=== PATIENT | female | born 1990 | race African-American/Black ===

== ENCOUNTER 2024-04-24 12:15 | Inpatient (IN) | payer OTHER, SELFPAY ==
[2024-04-24] VITALS (9 sets, daily range): BP systolic 96–112; BP diastolic 61–73; BMI 27.0; BMI 26.4
--- NOTE | 2024-04-24 06:35 | ED.GENMED ---
History of Present Illness
General
Chief Complaint: Generalized Pain
Source: patient
Exam Limitations: none
Time Seen by Provider: 04/24/24 06:15
History of Present Illness
History of Present Illness:
33-year-old female presents with what she feels is a lupus flare. She stated started getting worse earlier in the week. Lupus flare symptoms are general myalgias aches fatigue joint pains. No fever. No photophobia. No hallucinations. Some
vague headache. She had increased her prednisone to 30 mg early in the week and is back down to 10 mg currently. She has not been seen by her director of search engine optimization although apparently they have recommended she get a lumbar puncture to evaluate for her
lupus. She was suggested to come to the ER yesterday. However presents this morning.
Past History
Past History
ED Past Medical History: Other (SLE)
ED Past Surgical History:
Review of Systems
Review of Systems
All Other Systems: Not applicable
Respiratory: Reports no symptoms
Cardiac: Reports no symptoms
ABD/GI: Reports no symptoms
: Reports no symptoms
Phy Exam
Physical Exam
Physical Exam:
GENERAL: Alert and oriented in no apparent distress
EYE: Orbits normal. This sharp
NECK: Supple, negative Kernig's and Brudzinski sign
CARDIAC: Regular rate and rhythm without any obvious murmurs.
LUNGS: Clear breath sounds,normal
ABDOMEN: Soft, without focal tenderness or distention
NEUROLOGICAL: Alert and oriented , grossly non-focal. Speech normal. Gait witnessed and normal.
SKIN: Warm and dry, no rash or lesion, no discoloration, skin intact.
MUSCULOSKELETAL: No edema,no deformity.Good color. No clear-cut joint swelling at this time. No warmth or erythema to the joints.
PSYCH: Normal and appropriate interaction.
Course
Orders/Labs/Results
Orders:
Orders
04/24/24 06:29
Test Result ONCE
04/24/24 06:30
0.9% Sodium Chloride 500 ml [Nss] 500 ml IV BOLUS
04/24/24 07:40
CRP [C-Reactive Protein] Urgent
Complete Blood Count/With Diff Urgent
Comprehensive Metabolic Panel Urgent
ESR [Erythrocyte Sed Rate] Urgent
HCG, Serum Qualitative Screen Urgent
Lipase Urgent
Comment: ADD ON
Urinalysis Reflex To Culture Urgent
Date Specimen was Collected: 04/24/24
Time Specimen was Collected: 07:33
Urine Microscopic Reflex Cult Urgent
Urine Culture Urgent
KAVITHA Source: U
Specimen Description:
Date Specimen was Collected: 04/24/24
Time Specimen was Collected: 07:33
04/24/24 08:00
Hydroxychloroquine [Plaquenil] 200 mg PO Q48H
04/24/24 08:09
Add On- LAB Urgent
Tests Added?: lipase
US Abdomen Complete/Upper Urgent
Comment:
Reason For Exam: elevated lfts. lupus
04/24/24 Lunch
Regular
At Your Request: Full Participation
04/24/24 11:35
Dexamethasone Sod Phosphate [Decadron] 10 mg IV NOW STA
04/24/24 11:55
GASTROINTESTINAL CONSULT Routine
Consulting Provider: Soham Mart
Was physician already notified: Yes
04/24/24 11:56
Admit/Transfer Patient As Directed
Co-Sign Provider:
Level of Care: Inpatient admission
Assign to:: Medical/Surgical
Physician / Group: dee dee guzman
Diagnosis: Lupus flare, transaminitis
Reason for Hospitalization: Lupus flare, transaminitis
Expected length of stay greater than two midnights?: Yes
ELOS- Estimated Length of Stay in days: 2
I certify the patient meets the requirements for IP care: Yes
PRN Pain Medication Management As Directed
May give lesser potent ordered pain med per pt: Yes
preference::
Protocol:: Medication orders for pain may be administered in a
manner that supports deferring to patient preference
when the pt is:
- Requesting an ordered lesser potent pain medication.
Least to most potent pain medications are defined
as: acetaminophen < NSAID < tramadol < opioids
(morphine, oxycodone, hydromorphone).
- Requesting a lesser dose of the same medication IF
ORDERED.
- Requesting a less intrusive route of administration
if both routes are prescribed by the provider (PO <
IV).
04/24/24 11:57
Code Status As Directed
Resuscitation Status: Full Code
04/24/24 13:27
Ondansetron Injectable [Zofran] 4 mg IV Q6HPRN PRN
Oxycodone [Roxicodone] 5 mg PO Q4HPRN PRN
04/24/24 13:27
Activity As Directed
Activity Level: Ambulate
Pneumatic Compression Sleeves As Directed
Type: Knee high
Vital Signs As Directed
Frequency: Per unit guidelines
DX Deep Vein Thrombosis Video Routine
04/24/24 14:10
Ketorolac [Toradol] 30 mg IV Q6HPRN PRN
04/24/24 20:00
Dexamethasone Sod Phosphate [Decadron] 4 mg IV Q12H
04/25/24 06:25
Comprehensive Metabolic Panel IN AM
Folate IN AM
TSH IN AM
Vitamin B12 IN AM
Abnormal Lab Results
04/24/24
07:40
WBC 4.5 L 10^3/uL
(4.8-10.8)
RBC 3.42 L 10^6/uL
(4.20-5.40)
Hgb 10.6 L g/dL
(12.0-16.0)
Hct 32.9 L %
(37.0-47.0)
MCHC 32.2 L g/dL
(33.0-37.0)
RDW 16.3 H %
(11.5-14.5)
Abs Immat Gran (auto) 0.1 H 10^3/uL
(0-0.05)
Absolute Lymphs (auto) 0.7 L 10^3/uL
(1.2-3.4)
Immature Gran % 1.8 H %
(0-0.5)
Lymphocytes % 14.6 L %
(20.5-51.1)
ESR 48 H mm/hour
(0-20)
Creatinine 0.5 L mg/dL
(0.6-1.0)
Total Bilirubin 2.2 H mg/dl
(0.2-1.3)
AST 310 H U/L
(14-36)
ALT 419 H U/L
(0-35)
C-Reactive Protein 16.60 H mg/L
(0.0-10.00)
Total Protein 8.4 H g/dl
(6.3-8.2)
Leukocyte Esterase Rfl 2+ A
(Negative)
Urine RBC 3-6 A /HPF
(0-2)
Urine WBC (Reflex) 11-15 A /HPF
(0-5)
Urine Bacteria (Reflex) Few A
(Negative)
04/24/24 07:40
04/24/24 07:40
Vital Signs
Initial and Last Documented VS:
Initial Vital Signs
Temp Pulse Resp BP Pulse Ox
98.0 F 92 19 108/73 98
04/24/24 06:05 04/24/24 06:05 04/24/24 06:05 04/24/24 06:05 04/24/24 06:05
Last Documented Vital Signs
Temp Pulse Resp BP Pulse Ox
98.2 F 80 20 104/68 99
04/25/24 08:00 04/25/24 08:00 04/25/24 08:00 04/25/24 08:00 04/25/24 08:00
MDM/Problems Addressed
Differential Diagnosis Includes:
Patient sent for a lumbar puncture. Clinically she is not meningitic. I will try to contact and discussed with her director of search engine optimization. In the meantime check labs sed rate CRP.
*Radiology
Radiology exam reviewed: radiology read reviewed (Negative)
*Critical Care Note
Total Time (30-74mins, 75-104mins- exclusive of procedures): Not Applicable
Update Note
Update Note:
Discussed with patient's director of search engine optimization. She feels very unlikely to be her medications. However with progressive symptoms increasing inflammatory markers new transaminitis patient will be admitted. Clinically not meningitic
ED Attending Note
-
Portions of this chart may have been created with voice recognition software.� Occasional wrong word or��sound alike� substitutions may have occurred due to the inherent limitations of voice recognition software.
Discharge Plan
Departure
Patient Disposition: Admit
Date of Disposition: 04/24/24
Time of Disposition: 09:26
Presentation/result/management discussed w/ accepting MD/DO: Hospitalist
Discharge Problem:
SLE flare, Transaminitis
Interventions
Interventions:
*Risk Screen - Suicide Last Done: 04/24/24 06:05
*General Assessment Last Done: 04/24/24 06:05
*Neglect/Abuse Screening Last Done: 04/24/24 06:05
ED- Fall Risk Assessment Last Done: 04/24/24 06:40
*ED COVID-19 Vaccine History Last Done: 04/24/24 06:05
*Nursing Disposition Last Done: 04/24/24 13:27
Discharge Date and Time
Discharge Date/Time: 04/24/24 13:28
--- NOTE | 2024-04-24 06:42 | EDRN ---
Patient states she wants to hold off on blood work until they can get ahold of her doctor.
[2024-04-24] MEDS: NSS 500 IV (07:41)
[2024-04-24 07:57] LABS: % Basophils 0.4 % (0-2); % Immature Granulocytes 1.8 % (0-0.5); % Lymphocytes 14.6 % (20.5-51.1); % Monocytes 8.2 % (1.7-9.3); Absolute Immature Granulocytes 0.1 10^3/uL (0-0.05); Absolute Lymphocytes 0.7 10^3/uL (1.2-3.4); Absolute Monocytes 0.4 10^3/uL (0.1-0.6); Absolute Neutrophils 3.4 10^3/uL (1.4-6.5); Hematocrit 32.9 % (37.0-47.0); Hemoglobin 10.6 g/dL (12.0-16.0); Mean Corp Hgb Conc. 32.2 g/dL (33.0-37.0); Mean Corpuscular Volume 96.2 fL (81.0-99.0); Mean Platelet Volume 9.3 fL (7.4-10.4); Nucleated Red Blood Cells % 0 %; Platelet Count 362 10^3/uL (130-400); Red Blood Cell Count 3.42 10^6/uL (4.20-5.40); Red Cell Dist. Width 16.3 % (11.5-14.5); White Blood Cell Count 4.5 10^3/uL (4.8-10.8)
[2024-04-24 07:58] LABS: Urine Albumin Negative (Neg - Trace); Urine Bilirubin Negative (Negative); Urine Character Clear (Clear); Urine Color Yellow; Urine Glucose Negative (Negative); Urine Ketone Negative (Negative); Urine Leukocyte 2+ (Negative); Urine Nitrite Negative (Negative); Urine Occult Blood Negative (Negative); Urine Specific Gravity 1.015 (<1.030); Urine Urobilinogen Negative (Neg - 1+)
[2024-04-24 08:02] LABS: HCG, Serum Qualitative Screen Negative
[2024-04-24 08:06] LABS: ALT (SGPT) 419 U/L (0-35); AST (SGOT) 310 U/L (14-36); Albumin 4.1 g/dl (3.5-5.0); Alkaline Phosphatase 72 U/L (38-126); Blood Urea Nitrogen 12 mg/dl (7-17); Calcium 9.5 mg/dl (8.4-10.2); Carbon Dioxide 26 mmol/L (22-30); Chloride 105 mmol/L (98-107); Estimated Creatinine Clearance 122 ml/min; Glucose 90 mg/dl (70-99); Sodium 142 mmol/L (135-145); Total Bilirubin 2.2 mg/dl (0.2-1.3); Total Protein 8.4 g/dl (6.3-8.2); eGFR > 60.00
[2024-04-24 08:21] LABS: Lipase 54 U/L (23-300)
[2024-04-24 08:37] LABS: Urine Bacteria Few (Negative)
[2024-04-24 08:43] LABS: Erythrocyte Sed Rate 48 mm/hour (0-20)
--- NOTE | 2024-04-24 11:33 | HPS.HSE ---
Family Physician
-
Family Physician: Martell Quinteros
Chief Complaint
-
Lupus flare
History of Present Illness
33-year-old female with a past medical history of lupus presents with a lupus flare. Patient reports for the past 1-2 weeks, she has been having worsening joint pain, lower back pain, swelling, headache, and fatigue. Other symptoms include memory
loss for the last few months, nausea. She was recently on a higher dose of steroids 30 mg earlier in the week, now reduced to 10 mg daily. She was told by her interior designer to come to the ER for evaluation.
Medical History
Past Medical History
Past Medical History: Reports Other (Lupus)
Past Surgical History: Reports and Orthopedic
Social History
Tobacco: Non-smoker
Alcohol: Occasional
Drug: None
Personal:
Living: With Family
Family History
Family History: Not pertinent
Allergies / Home Medications
Allergies reflects when Allergies were last updated in [email or web address].
Home Medications with original date entered in [email or web address]
Allergy/Medication List:
Allergies
Allergy/AdvReac Type Severity Reaction Status Date / Time
Sulfa (Sulfonamide Allergy Rash Verified 04/24/24 06:05
Antibiotics)
Home Medications Table - record
�Medication �Instructions �Recorded �Confirmed
belimumab 200 mg/mL subcutaneous 200 mg SC QWEEK 04/24/24 04/24/24
auto-injector (Benlysta)
dextroamphetamine-amphetamine 15 15 mg PO BID 04/24/24 04/24/24
mg tablet (Adderall)
hydroxychloroquine 200 mg tablet 200 mg PO .EVERY OTHER DAY 04/24/24 04/24/24
(Plaquenil)
prednisone 10 mg tablet 10 mg PO DAILY 04/24/24 04/24/24
Review of Systems
-
A 12 point ROS was completed and negative except as noted: Yes
Physical Exam
Vital Signs
Vital Signs
Temp Pulse Resp BP Pulse Ox
98.4 F 81 21 103/62 99
04/24/24 09:23 04/24/24 11:00 04/24/24 11:00 04/24/24 11:00 04/24/24 11:00
Physical Exam
General: Well Developed, Well Nourished and No Apparent Distress
HEENT: NormoCephalic, Anicteric, Moist mucous membranes and Atraumatic
Respiratory: Clear
Cardiac: S1/S2
GI: Soft, Non Tender, Non Distended and Normal Bowel Sounds
Musculoskeletal: No Clubbing and No Cyanosis
Skin: Warm
Neuro: Awake, Alert and Oriented
Psych: Calm
Laboratory Results
-
04/24/24 07:40
04/24/24 07:40
Laboratory Results
Total Bilirubin 2.2 mg/dl (0.2-1.3) H 04/24/24 07:40
AST 310 U/L (14-36) H 04/24/24 07:40
ALT 419 U/L (0-35) H 04/24/24 07:40
Alkaline Phosphatase 72 U/L (38-126) 04/24/24 07:40
Lipase 54 U/L (23-300) 04/24/24 07:40
Impression/Plan
-
HPI: 33-year-old female with a past medical history of lupus presents with a lupus flare. Patient reports for the past 1-2 weeks, she has been having worsening joint pain, lower back pain, swelling, headache, and fatigue. Other symptoms include
memory loss for the last few months, nausea. She was recently on a higher dose of steroids 30 mg earlier in the week, now reduced to 10 mg daily. She was told by her interior designer to come to the ER for evaluation.
#Acute lupus flare
ESR/CRP elevated
Treat with IV dexamethasone, continue hydroxychloroquine
#Transaminitis
Liver ultrasound normal
Consult GI
#Memory impairment
Her interior designer Dr. Kathie Vgeas in [place] initially recommended coming to the ER for lumbar puncture
However she does not have any meningeal signs
Check TSH, B12, folate, SHRUTHI
Recommend following up with neurology outpatient
DVT prophylaxis�SCDs
Full code
--- NOTE | 2024-04-24 12:25 | CON.GI ---
Consultation
-
Date/Time Consultation Requested: 04/24/2024, 12pm
Date/Time Consultation Performed: 04/24/2024, 1pm
Requesting Provider: Dr. Norton
Performing Provider: Dr. Mart
Reason for Consultation: abnormal LFTs
Medical History
Chief Complaint / HPI
Chief Complaint: lupus flare
History of Present Illness:
33 yo F admitted with lupus flare - myalgias, ache, fatigue, joint pain. She also has nausea, lower back pain, memory issues which is new for her. No diarrhea, abd pain, heartburn, dysphagia.
Per pt rheum (Dr. Kathie Vegas in [place]) checked LFTs were elevated earlier this week but never had liver issues previously.
Denies new meds, herbal meds, IVDU, FH liver dz, high risk sexual encounters. Drinks 2 drinks ETOH a month. Blood transfusion 2 years ago.
GI consulted for incidentally noted abnormal LFTs - AST 310, ALT 419, normal AP 72, TB 2.2 no direct checked. US done showed normal liver, no fatty liver.
Past Medical History
Past Medical History: Other (lupus)
Past Surgical History: Gynecological (c section)
Social History
Tobacco: Non-Smoker
Alcohol: Occasional
Drug: None
Family History
Family History: Reviewed & Not Pertinent
Allergies / Home Medications
Allergy/AdvReac Type Severity Reaction Status Date / Time
Sulfa (Sulfonamide Allergy Rash Verified 04/24/24 06:05
Antibiotics)
�Medication �Instructions �Recorded
belimumab 200 mg/mL subcutaneous 200 mg SC QWEEK 04/24/24
auto-injector (Benlysta)
dextroamphetamine-amphetamine 15 15 mg PO BID 04/24/24
mg tablet (Adderall)
hydroxychloroquine 200 mg tablet 200 mg PO .EVERY OTHER DAY 04/24/24
(Plaquenil)
prednisone 10 mg tablet 10 mg PO DAILY 04/24/24
Review of Systems
-
All other systems: A 12 pt ROS was Negative except as stated above in HPI
Vital Signs
Temp Pulse Resp BP Pulse Ox
98.4 F 81 21 103/62 99
04/24/24 09:23 04/24/24 11:00 04/24/24 11:00 04/24/24 11:00 04/24/24 11:00
Physical Exam
Exam
General: Well Developed
HEENT: Normocephalic
Respiratory: Clear
Cardiac: S1/S2
GI: Non Tender and Non Distended
Musculoskeletal: No Clubbing
Skin: Warm
Neuro: AO x 3
Psych: Calm
Results
WBC 4.5 10^3/uL (4.8-10.8) L 04/24/24 07:40
Hgb 10.6 g/dL (12.0-16.0) L 04/24/24 07:40
Hct 32.9 % (37.0-47.0) L 04/24/24 07:40
MCV 96.2 fL (81.0-99.0) 04/24/24 07:40
Plt Count 362 10^3/uL (130-400) 04/24/24 07:40
Absolute Neuts (auto) 3.4 10^3/uL (1.4-6.5) 04/24/24 07:40
Sodium 142 mmol/L (135-145) 04/24/24 07:40
Potassium 4.0 mmol/L (3.5-5.1) 04/24/24 07:40
Chloride 105 mmol/L (98-107) 04/24/24 07:40
Carbon Dioxide 26 mmol/L (22-30) 04/24/24 07:40
BUN 12 mg/dl (7-17) 04/24/24 07:40
Creatinine 0.5 mg/dL (0.6-1.0) L 04/24/24 07:40
Calcium 9.5 mg/dl (8.4-10.2) 04/24/24 07:40
Total Bilirubin 2.2 mg/dl (0.2-1.3) H 04/24/24 07:40
AST 310 U/L (14-36) H 04/24/24 07:40
ALT 419 U/L (0-35) H 04/24/24 07:40
Alkaline Phosphatase 72 U/L (38-126) 04/24/24 07:40
Lipase 54 U/L (23-300) 04/24/24 07:40
Diagnostic Image Results:
Prior GI Procedures:
EGD:
Colonoscopy:
Assessment / Plan
-
33 yo F pmh lupus here with flare found incidentally to have abnormal LFTs.
In regards to her meds hydroxycloroquine and belimumab unlikely to cause hepatoxicity.
Will do full liver work up and add direct bilirubin.
Could also have lupus involvement of liver.
If bloodwork unremarkable may need liver biopsy if no improvement however liver work up will take days and can also be followed outpatient pending clinical status.
Trend LFTs with direct bili daily.
-
-
Thank you for consultation and allowing me to participate in the patient's care. Please call the online user experience strategist GI physician during the after hours with any questions or concerns.
[2024-04-24] MEDS: DECADRON 10 MG IV (12:42)
--- NOTE | 2024-04-24 13:55 | PTCARENOTE ---
Pt arrived to 4 W from ED via stretcher. Pt walked from stretcher to standing scale, then to bed. Pt AAOx3 and states she has a headache and low back pain, rating the pain 6/10. Pt oriented to call kapoor and room, bed locked and in lowest position,
call kapoor within reach.
[2024-04-24] MEDS: ROXICODONE 5 MG PO (14:09)
[2024-04-24] MEDS: PLAQUENIL 200 MG PO (15:06)
[2024-04-24] MEDS: DECADRON 4 MG IV (20:34)
[2024-04-25 07:37] LABS: % Immature Granulocytes 0.4 % (0-0.5); % Lymphocytes 7.2 % (20.5-51.1); % Neutrophils 85.4 % (42.2-75.2); Absolute Lymphocytes 0.4 10^3/uL (1.2-3.4); Absolute Monocytes 0.4 10^3/uL (0.1-0.6); Absolute Neutrophils 4.7 10^3/uL (1.4-6.5); Hematocrit 31.7 % (37.0-47.0); Hemoglobin 9.8 g/dL (12.0-16.0); Mean Corp Hgb Conc. 30.9 g/dL (33.0-37.0); Mean Corpuscular Hgb 29.3 pg (27.0-31.0); Mean Corpuscular Volume 94.6 fL (81.0-99.0); Mean Platelet Volume 9.8 fL (7.4-10.4); Nucleated Red Blood Cells % 0 %; Platelet Count 417 10^3/uL (130-400); Red Blood Cell Count 3.35 10^6/uL (4.20-5.40); Red Cell Dist. Width 16.2 % (11.5-14.5); White Blood Cell Count 5.4 10^3/uL (4.8-10.8)
[2024-04-25 08:00] VITALS: BP 104/68
[2024-04-25 08:02] LABS: IgA 148 mg/dl (70-400); IgM 179 mg/dl (40-230)
[2024-04-25 08:04] LABS: IgA 149 mg/dl (70-400)
[2024-04-25 08:14] LABS: ALT (SGPT) 537 U/L (0-35); AST (SGOT) 389 U/L (14-36); Albumin 3.9 g/dl (3.5-5.0); Alkaline Phosphatase 82 U/L (38-126); Blood Urea Nitrogen 11 mg/dl (7-17); Calcium 9.4 mg/dl (8.4-10.2); Carbon Dioxide 21 mmol/L (22-30); Chloride 107 mmol/L (98-107); Direct Bilirubin 0.2 mg/dl (0.0-0.4); Estimated Creatinine Clearance 121 ml/min; Glucose 179 mg/dl (70-99); Iron 80 ug/dl (37-170); Percent Saturation 29 % (20-50); Potassium 4.5 mmol/L (3.5-5.1); Sodium 141 mmol/L (135-145); Total Bilirubin 1.3 mg/dl (0.2-1.3); Total Iron Binding Capacity 275 ug/dl (265-497); eGFR > 60.00
[2024-04-25 08:22] LABS: INR 1.19; PT 14.9 Sec (11.4-14.6)
[2024-04-25 08:36] LABS: TSH 0.19 uIU/ml (0.47-4.68)
[2024-04-25 08:49] LABS: IgG 3182 mg/dl (700-1600)
[2024-04-25] MEDS: DECADRON 4 MG IV ×2 (08:52→19:32)
[2024-04-25] MEDS: TORADOL 30 MG IV ×2 (09:08→14:51)
[2024-04-25 09:12] LABS: Folate 7.9 ng/ml (2.76-20); Vitamin B12 722 pg/ml (239-931)
--- NOTE | 2024-04-25 10:35 | W.PN.HOSP.TC ---
Today's Communication/Plan
-
Continue IV steroid every 12 hours, hydroxychloroquine EOD
Trend LFTs, follow-up GI recs
Follow-up serological studies that are pending
Assessment / Plan
Assessment / Plan
#Acute lupus flare
-Home medications include belimumab weekly and hydroxychloroquine EOD
-Joint predominant symptoms, no known history of renal or skin involvement
-Presented with worsening joint pain, elevated ESR and CRP on admission lab
-Started on IV dexamethasone regimen, continued on hydroxychloroquine
-Does feel slightly better today, no obvious signs of tenosynovitis on exam
Plan
-Continue with IV dexamethasone 4 mg every 12 hours
-Continue to trend inflammatory markers, clinical status
-Follow-up repeat serology
#Transaminitis
-Differentials include new autoimmune etiology, Liu's disease, viral hepatitis, related to SLE
-Initial labs showed elevated AST and ALT; ALP and bilirubin levels were WNL; liver US was unremarkable
-ALP/bilirubin ratio near 63 is not consistent with Liu's disease as ratio would be closer to 2
-Low suspicion for hemochromatosis as of now, labs showed elevated ferritin with normal TIBC
-Serology pending: SHRUTHI, antimitochondrial, soluble liver Ag, F-actin, celiac's panel, hepatitis panel, ceruloplasmin and a-1-AT
Plan
-Continue to trend LFTs daily
-Avoid unnecessary hepatotoxins as possible
-Follow-up serological studies as above
#Low TSH
-No free T4 on labs available, added on T4 to further delineate
-No obvious signs or symptoms of thyroid dysfunction as of now
#Memory impairment
-Her conventional mortgage underwriter Dr. aKthie Vegas in [place] initially recommended coming to the ER for lumbar puncture
-However she does not have any meningeal signs, lab studies here were unremarkable for causes
-Recommend following up with neurology outpatient
DVT prophylaxis: SCDs
Diet: Regular
CODE STATUS: Full code
Anticipated Discharge: 24 - 48 hours
Subjective/Interval History
-
Date of Service: April 25, 2024
Seen and examined at the bedside. No acute events overnight. AFVSS this morning.
Her LFTs continue to worsen, ALP, AST, ALT all higher than yesterday. Bilirubin levels normal.
She states she feels slightly better today though does have some residual joint pain in back and knees. Denies chest pain, dyspnea, fevers or chills, nausea, vomiting, diarrhea, urinary issues, abnormal bleeding or bruising, paresthesias or
weakness.
She does mention some yellow vaginal discharge noted earlier. She denies any high risk sexual encounters, states she is currently . States she has had UTIs previously. Ordered vaginal swab
Objective Data
-
Labs:
Laboratory Results
04/25/24 04/25/24
06:25 07:54
WBC 5.4
Hgb 9.8 L
Hct 31.7 L
Plt Count 417 H
PT Cancelled 14.9 H
INR Cancelled 1.19
Sodium 141
Potassium 4.5
Chloride 107
Carbon Dioxide 21 L
BUN 11
Creatinine 0.5 L
Glucose 179 H
Calcium 9.4
Total Bilirubin 1.3
AST 389 H
ALT 537 H*
Alkaline Phosphatase 82
Vital Signs:
Vital Signs
Temp Pulse Resp BP Pulse Ox
98.2 F 80 20 104/68 99
04/25/24 08:00 04/25/24 08:00 04/25/24 08:00 04/25/24 08:00 04/25/24 08:00
I&O
04/24/24 04/25/24 04/26/24
06:59 06:59 06:59
Intake Total 1200 / 1200
Balance 1200 / 1200
Review of Systems
-
History Source: Patient
All other systems: Reviewed and negative
Physical Exam
-
General: Well Nourished, No Apparent Distress and Comfortable
HEENT: Normocephalic, Atraumatic, Moist Mucous Membranes and Anicteric
Respiratory: Clear to Auscultation and Non Labored Respirations; Negative Wheezes, Rales, Rhonchi or Accessory Resp Muscle Use
Cardiac: Regular Rhythm and S1/S2; Negative Murmur, Rub, JVD or Gallop
GI: Soft, Nontender, Nondistended and Normal Bowel Sounds
Musculoskeletal: No Clubbing, No Cyanosis and No Edema
Skin: Warm and Dry; Negative Rash or Jaundice
Neuro: AO x 3, Nonfocal/Grossly Intact and Central Nerve's Intact; Negative Tremors
Data Reviewed
-
Labs: Labs Reviewed by me and Discussed with Patient
--- NOTE | 2024-04-25 11:07 | CON.GI ---
Medical History
Allergies / Home Medications
Allergy/AdvReac Type Severity Reaction Status Date / Time
Sulfa (Sulfonamide Allergy Rash Verified 04/24/24 06:05
Antibiotics)
�Medication �Instructions �Recorded
belimumab 200 mg/mL subcutaneous 200 mg SC QWEEK Autoimmune Disorder 04/24/24
auto-injector (Benlysta)
dextroamphetamine-amphetamine 15 15 mg PO BID ADHD 04/24/24
mg tablet (Adderall)
hydroxychloroquine 200 mg tablet 200 mg PO .EVERY OTHER DAY 04/24/24
(Plaquenil) Autoimmune Disorder
prednisone 10 mg tablet 10 mg PO DAILY Anti-Inflammatory 04/24/24
Review of Systems
Vital Signs
Temp Pulse Resp BP Pulse Ox
98.2 F 80 20 104/68 99
04/25/24 08:00 04/25/24 08:00 04/25/24 08:00 04/25/24 08:00 04/25/24 08:00
Physical Exam
Results
WBC 5.4 10^3/uL (4.8-10.8) 04/25/24 06:25
Hgb 9.8 g/dL (12.0-16.0) L 04/25/24 06:25
Hct 31.7 % (37.0-47.0) L 04/25/24 06:25
MCV 94.6 fL (81.0-99.0) 04/25/24 06:25
Plt Count 417 10^3/uL (130-400) H 04/25/24 06:25
Absolute Neuts (auto) 4.7 10^3/uL (1.4-6.5) 04/25/24 06:25
PT 14.9 Sec (11.4-14.6) H 04/25/24 07:54
INR 1.19 04/25/24 07:54
Sodium 141 mmol/L (135-145) 04/25/24 06:25
Potassium 4.5 mmol/L (3.5-5.1) 04/25/24 06:25
Chloride 107 mmol/L (98-107) 04/25/24 06:25
Carbon Dioxide 21 mmol/L (22-30) L 04/25/24 06:25
BUN 11 mg/dl (7-17) 04/25/24 06:25
Creatinine 0.5 mg/dL (0.6-1.0) L 04/25/24 06:25
Calcium 9.4 mg/dl (8.4-10.2) 04/25/24 06:25
Total Bilirubin 1.3 mg/dl (0.2-1.3) 04/25/24 06:25
AST 389 U/L (14-36) H 04/25/24 06:25
ALT 537 U/L (0-35) H* 04/25/24 06:25
Alkaline Phosphatase 82 U/L (38-126) 04/25/24 06:25
Lipase 54 U/L (23-300) 04/24/24 07:40
Diagnostic Image Results:
Prior GI Procedures:
EGD:
Colonoscopy:
Assessment / Plan
-
33 yo F pmh lupus here with flare found incidentally to have abnormal LFTs.
In regards to her meds hydroxycloroquine and belimumab unlikely to cause hepatoxicity.
Will do full liver work up and add direct bilirubin.
Could also have lupus involvement of liver.
If bloodwork unremarkable may need liver biopsy if no improvement however liver work up will take days and can also be followed outpatient pending clinical status.
Trend LFTs with direct bili daily.
-
-
Thank you for consultation and allowing me to participate in the patient's care. Please call the adoption manager GI physician during the after hours with any questions or concerns.
--- NOTE | 2024-04-25 11:08 | W.PN.GI.CBS2 ---
Today's Communication / Plan
-
Transaminases continue to rise, pending rest of serologic w/u. May need liver bx this admission pending clinical course. Rest of care as outlined below.
Assessment / Plan
-
Ms Wilde is a 33 y.o female with past medical history of SLE who presented with a lupus flare and found to have incidental elevated transaminases.
#Elevated LFTs
#Moderate Hepatocellular-induced Liver Injury
#Hx of SLE (on Hydroxychloroquine and Belimumab)
Impression: Found to have AST/ALT in 400s with otherwise normal cholestatic labs and intact synthetic function. Concern for underlying SLE flare given symptomatology on admission. Etiology of her hepatocellular induced liver injury concerning for
possible lupus involvement of her liver (ie lupus hepatitis) versus overlap AIH with SLE versus hepatotoxicity (less likely as hydroxychloroquine category C and belimumab category E per Liver Tox) versus underlying viral hepatitis versus other
metabolic and/or hereditary cause of liver disease. No other concern for ischemia as without hypotension or other potential concern for DILI.
Liver US 04/24/2024 without steatosis, fibrosis, hepatomegaly and was grossly unremarkable.
AST 310 -> 389 and ALT 419 -> 537, with nml ALP and intact synthetic function with INR 1.19
Pending serologic w/u and viral hepatitis ; total IgG lvls elevated 3182
Recommendations:
- Trend LFTs and INR q daily
- Favor continued monitoring until transaminases peak and/or plateau, particularly her ALT
- Await rest of viral hepatitis and serologic w/u for underlying metabolic, hereditary and autoimmune liver disease
- Remains on IV Dexamethasone given SLE flare, however may confound clinical picture if concern for possible AIH if liver bx were to be performed
- Await serologic w/u and will consider liver bx this admission particularly if viral hepatitis has been r/o as AIH versus SLE-induced hepatitis remains highest on differential
- Avoid hepatotoxic medications
- Will attempt to reach patient's Coutierier, Dr. Kathie Barton
- Rest of care per primary team
Subjective
Subjective
Date of Service: April 25, 2024
- AST 310 -> 389 and ALT 419 -> 537, with nml ALP and intact synthetic function with INR 1.19
Resting comfortably in bed, confirmed and reviewed HPI with patient. Denies any new or recent changes in her medications, herbal supplements or significant EtOH use. She was started on higher doses of steroids at the direction of her Coutierier.
Follows with Dr. Kathie Barton at [facility]. Denies any prior history of liver disease or previously elevated LFTs in the past.
Objective
Data Reviewed
Laboratory Data:
Laboratory Results
04/25/24 06:25
04/25/24 06:25
Laboratory Results
PT 14.9 Sec (11.4-14.6) H 04/25/24 07:54
INR 1.19 04/25/24 07:54
Total Bilirubin 1.3 mg/dl (0.2-1.3) 04/25/24 06:25
AST 389 U/L (14-36) H 04/25/24 06:25
ALT 537 U/L (0-35) H* 04/25/24 06:25
Alkaline Phosphatase 82 U/L (38-126) 04/25/24 06:25
Lipase 54 U/L (23-300) 04/24/24 07:40
Vital Signs and I&O:
Vital Signs
Temp Pulse Resp BP Pulse Ox
98.2 F 80 20 104/68 99
04/25/24 08:00 04/25/24 08:00 04/25/24 08:00 04/25/24 08:00 04/25/24 08:00
I&O
04/24/24 04/25/24 04/26/24
06:59 06:59 06:59
Intake Total 1200 / 1200
Balance 1200 / 1200
Physical Exam
Physical Exam
HEENT: Anicteric and Moist mucous membranes
Cardiology: Normal Sinus Rhythm
Pulmonary: Clear
GI: Soft, Non Distended, Non Tender and Other (No hepatosplenomegaly)
Extremities: No Edema and Warm
Neuro: Non Focal and Other (AAOx3; no asterixis)
[2024-04-25 11:27] LABS: Free T4 1.13 ng/dl (0.78-2.19)
[2024-04-25 16:00] VITALS: BP 108/64
--- NOTE | 2024-04-25 16:28 | CM ---
clinical manager home care reviewed patient's chart and met with patient and patient was admitted with lupus flare. Patient reports that she lives with her spouse and son in a 2 story home, patient is independent with adl's and ambulation, no dme, patient drives.
Pharmacy: [facility]
PCP: Dr. Quinteros
Plan; Home with spouse when stable, no needs.
[2024-04-25 18:15] LABS: Hepatitis B Surface Antigen Negative (Negative)
[2024-04-25 18:32] LABS: Hepatitis A Antibody, Total Negative (Negative); Hepatitis B Core Ab, Total Negative (Negative); Hepatitis B Surface Antibody Negative; Hepatitis C Antibody Negative (Negative)
[2024-04-25] MEDS: ROXICODONE 5 MG PO (19:36)
[2024-04-25 23:29] VITALS: BP 107/65
[2024-04-26 07:15] VITALS: BP 114/68
[2024-04-26 07:54] LABS: INR 1.12; PT 14.3 Sec (11.4-14.6)
[2024-04-26 08:10] LABS: % Basophils 0.1 % (0-2); % Immature Granulocytes 0.3 % (0-0.5); % Lymphocytes 8.1 % (20.5-51.1); % Monocytes 6.9 % (1.7-9.3); % Neutrophils 84.6 % (42.2-75.2); Absolute Lymphocytes 0.8 10^3/uL (1.2-3.4); Absolute Monocytes 0.7 10^3/uL (0.1-0.6); Absolute Neutrophils 8.3 10^3/uL (1.4-6.5); Hematocrit 31.9 % (37.0-47.0); Mean Corp Hgb Conc. 31.3 g/dL (33.0-37.0); Mean Corpuscular Hgb 29.9 pg (27.0-31.0); Mean Corpuscular Volume 95.2 fL (81.0-99.0); Mean Platelet Volume 9.9 fL (7.4-10.4); Nucleated Red Blood Cells % 0 %; Platelet Count 406 10^3/uL (130-400); Red Blood Cell Count 3.35 10^6/uL (4.20-5.40); Red Cell Dist. Width 16.4 % (11.5-14.5); White Blood Cell Count 9.8 10^3/uL (4.8-10.8)
--- NOTE | 2024-04-26 08:17 | W.PN.GI.CBS2 ---
Addendum entered and electronically signed by Gennaro Monique DO 04/26/24 10:24:
UPDATE: I personally left a message on the answering on-call service for patient's Game Breeding Farm Manager at [facility] this morning around 8:45 AM given patient's worsening LFTs and previous concern for SLE flare on admission. She is still
being treated with IV Dexamethasone as per primary team. Transaminases continue to rise without clear explanation with ALT 419 -> 537 -> 650 with intact synthetic function and nml T Bili. Suspect she will require a liver biopsy if her numbers
continue to rise and w/u remains unremarkable. I called the inpatient lab to add-on and order additional serologies for infectious w/u including HSV, CMV, EBV, along with VZV given that she is immunosuppressed along with checking HEV IgM. However,
this will take time. Serologic w/u thus far has been unrevealing except for elevated IgG lvls but nonspecific given her SLE. Will defer pursuing liver biopsy until I speak with patient's Game Breeding Farm Manager to further discuss patient's care. This may be
SLE-induced hepatitis but would expect some response with ongoing IV steroids versus other AI-liver disease (possibly AIH). Low suspicion for DILI. Otherwise, no evidence of MARCOS but needs continued close monitoring while inpatient given her rising,
acute hepatocellular induced liver injury.
Original Note:
Today's Communication / Plan
-
Viral hepatitis (-), still pending full serologic w/u. Still may require liver bx this admission pending repeat LFTs. Will check additional infectious studies (ie EBV, CMV, etc). Rest of care as outlined below.
Assessment / Plan
-
Ms Wilde is a 33 y.o female with past medical history of SLE who presented with a lupus flare and found to have incidental elevated transaminases.
#Elevated LFTs
#Moderate Hepatocellular-induced Liver Injury
#Hx of SLE (on Hydroxychloroquine and Belimumab)
Impression: Found to have AST/ALT in 400s with otherwise normal cholestatic labs and intact synthetic function. Concern for underlying SLE flare given symptomatology on admission. Etiology of her hepatocellular induced liver injury concerning for
possible lupus involvement of her liver (ie lupus hepatitis) versus overlap AIH with SLE versus hepatotoxicity (less likely as hydroxychloroquine category C and belimumab category E per Liver Tox) versus underlying viral hepatitis versus other
metabolic and/or hereditary cause of liver disease. No other concern for ischemia as without hypotension or other potential concern for DILI.
Liver US 04/24/2024 without steatosis, fibrosis, hepatomegaly and was grossly unremarkable.
AST 310 -> 389 and ALT 419 -> 537, with nml ALP and intact synthetic function with INR 1.19
Viral hepatitis (-) including: Total HAV (-), HBsAg (-), HBsAb (-), HBcAb (-) and HCV (-) ; Pending serologic w/u along with Celiac testing ; total IgG lvls elevated 3182
Recommendations:
- Trend LFTs and INR q daily
- Favor continued monitoring until transaminases peak and/or plateau, particularly her ALT - will f/u AM labs
- Await rest of serologic w/u for underlying metabolic, hereditary and autoimmune liver disease
- Remains on IV Dexamethasone given SLE flare, however may confound clinical picture if concern for possible AIH if liver bx were to be performed
- Await serologic w/u and will consider liver bx this admission particularly if viral hepatitis has been r/o as AIH versus SLE-induced hepatitis remains highest on differential
- Will additionally check extended infectious w/u including: VZV, HSV CMV and EBV given her immunosuppression and SLE. Will need to d/w lab regarding additional atypical infectious w/u
- Avoid hepatotoxic medications
- Will attempt to reach patient's Game Breeding Farm Manager, Dr. Kathie Barton, this afternoon
- Rest of care per primary team
Subjective
Subjective
Date of Service: April 26, 2024
- Viral hepatitis testing (-) including Total HAV (-), HBsAg (-), HBsAb (-), HBcAb (-) and HCV (-)
Resting comfortably in bed, admits improving joint pain and resolution of her previous headaches. No fevers, chills or other constitutional symptoms. Continues to deny any abdominal pain or RUQ discomfort, however still with significant fatigue.
Unable to reach patient's Game Breeding Farm Manager yesterday afternoon, confirmed number with patient at bedside this AM.
Objective
Data Reviewed
Laboratory Data:
Laboratory Results
04/26/24 07:10
Laboratory Results
PT 14.3 Sec (11.4-14.6) 04/26/24 07:10
INR 1.12 04/26/24 07:10
Total Bilirubin 1.3 mg/dl (0.2-1.3) 04/25/24 06:25
AST 389 U/L (14-36) H 04/25/24 06:25
ALT 537 U/L (0-35) H* 04/25/24 06:25
Alkaline Phosphatase 82 U/L (38-126) 04/25/24 06:25
Lipase 54 U/L (23-300) 04/24/24 07:40
Vital Signs and I&O:
Vital Signs
Temp Pulse Resp BP Pulse Ox
98.3 F 68 20 107/65 100
04/25/24 23:29 04/25/24 23:29 04/25/24 23:29 04/25/24 23:29 04/25/24 23:29
I&O
04/25/24 04/26/24 04/27/24
06:59 06:59 06:59
Intake Total 1200 / 1200 1919
Balance 1200 / 1200 1919
Physical Exam
Physical Exam
HEENT: Anicteric and Moist mucous membranes
Cardiology: Normal Sinus Rhythm
Pulmonary: Clear
GI: Soft, Non Distended and Non Tender
Extremities: No Edema
Neuro: Non Focal
[2024-04-26] MEDS: PLAQUENIL 200 MG PO (08:24)
[2024-04-26] MEDS: DECADRON 4 MG IV ×2 (08:24→20:11)
[2024-04-26 08:31] LABS: ALT (SGPT) 650 U/L (0-35); AST (SGOT) 346 U/L (14-36); Albumin 3.9 g/dl (3.5-5.0); Alkaline Phosphatase 71 U/L (38-126); Blood Urea Nitrogen 11 mg/dl (7-17); Calcium 9.4 mg/dl (8.4-10.2); Carbon Dioxide 26 mmol/L (22-30); Chloride 108 mmol/L (98-107); Direct Bilirubin 0.2 mg/dl (0.0-0.4); Estimated Creatinine Clearance 121 ml/min; Glucose 100 mg/dl (70-99); Potassium 4.7 mmol/L (3.5-5.1); Sodium 142 mmol/L (135-145); Total Bilirubin 1.1 mg/dl (0.2-1.3); eGFR > 60.00
[2024-04-26] MEDS: ROXICODONE 5 MG PO (08:36)
[2024-04-26 09:27] LABS: Erythrocyte Sed Rate 41 mm/hour (0-20)
--- NOTE | 2024-04-26 09:48 | W.PN.HOSP.TC ---
Today's Communication/Plan
-
Continue with steroid and hydroxychloroquine for lupus
Trend daily LFTs and INR
Plan for liver biopsy, likely inpatient
Assessment / Plan
Assessment / Plan
#Acute lupus flare
-Home medications include belimumab weekly and hydroxychloroquine EOD
-Joint predominant symptoms, no known history of renal or skin involvement
-Presented with worsening joint pain, elevated ESR and CRP on admission lab
-Started on IV dexamethasone regimen, continued on hydroxychloroquine
-Does feel slightly better today, no obvious signs of tenosynovitis on exam
-Inflammatory markers are downtrending on steroid regimen
Plan
-Continue with IV dexamethasone 4 mg every 12 hours
-Continue with hydroxychloroquine regimen EOD
-Continue to trend inflammatory markers, clinical status
-Follow-up repeat serology
#Transaminitis
-Differentials include lupus with hepatic involvement, other autoimmune process; low suspicion for AIH, Liu's, hemochromatosis
-Initial labs showed elevated AST and ALT; ALP and bilirubin levels were WNL; liver US was unremarkable
-Serology pending: SHRUTHI, antimitochondrial, soluble liver Ag, F-actin, celiac's panel, ceruloplasmin and a-1-AT
-Hep A, hep B, hep C serology was negative
-Viral serology pending: CMV, EBV, HSV, VZV
-AST and ALT continue to rise despite steroid
Plan
-Continue to trend LFTs daily
-Avoid unnecessary hepatotoxins as possible
-Follow-up serological studies as above
-Plan for inpatient liver biopsy with GI
#Vaginal discharge
-States over the last 2 days she has had yellow discharge, associated with pruritus
-States she denies any high risk sexual encounters, is and monogamous
-Ordered vaginal culture to further assess possible infectious etiology that can be treated
-Started miconazole cream empirically
#Subclinical hyperthyroidism
-No free T4 on labs available, added on T4 to further delineate
-No obvious signs or symptoms of thyroid dysfunction as of now
-Free T4 levels were normal
#Memory impairment
-Her gray tender Dr. Kathie [place] in [place] initially recommended coming to the ER for lumbar puncture
-However she does not have any meningeal signs, lab studies here were unremarkable for causes
-Recommend following up with neurology outpatient
DVT prophylaxis: SCDs
Diet: Regular
CODE STATUS: Full code
Anticipated Discharge: > 48 hours
Subjective/Interval History
-
Date of Service: April 26, 2024
Seen and examined bedside. No acute events overnight. AFVSS this morning
LFTs with worsening AST and ALT this morning. Remainder of LFTs WNL
She denies any acute complaints states she feels fairly well. Still has some mild back and knee pain, as well as fatigue. Denies abdomen pain, fevers or chills, chest pain, shortness of breath, nausea, vomiting, diarrhea, urinary issue, abnormal
bleeding or bruising, paresthesias or weakness.
Objective Data
-
Labs:
Laboratory Results
04/26/24
07:10
WBC 9.8
Hgb 10.0 L
Hct 31.9 L
Plt Count 406 H
PT 14.3
INR 1.12
Sodium 142
Potassium 4.7
Chloride 108 H
Carbon Dioxide 26
BUN 11
Creatinine 0.5 L
Glucose 100 H
Calcium 9.4
Total Bilirubin 1.1
AST 346 H
ALT 650 H*
Alkaline Phosphatase 71
Vital Signs:
Vital Signs
Temp Pulse Resp BP Pulse Ox
98.2 F 63 17 114/68 100
04/26/24 07:15 04/26/24 07:15 04/26/24 07:15 04/26/24 07:15 04/26/24 07:15
I&O
04/25/24 04/26/24 04/27/24
06:59 06:59 06:59
Intake Total 1200 / 1200 1919
Balance 1200 / 1200 1919
Review of Systems
-
History Source: Patient
All other systems: Reviewed and negative
Physical Exam
-
General: Well Nourished, No Apparent Distress and Comfortable
HEENT: Normocephalic, Atraumatic, Moist Mucous Membranes and Anicteric
Respiratory: Clear to Auscultation and Non Labored Respirations; Negative Wheezes, Rales or Rhonchi
Cardiac: Regular Rhythm and S1/S2; Negative Murmur, Rub, JVD or Gallop
GI: Soft, Nontender, Nondistended and Normal Bowel Sounds
Musculoskeletal: No Clubbing, No Cyanosis, No Edema and Other (No signs of tenosynovitis of the hands, signs of mild knee effusion/soft tissue swelling bilaterally)
Skin: Warm and Dry; Negative Rash or Jaundice
Neuro: AO x 3, Nonfocal/Grossly Intact and Central Nerve's Intact; Negative Tremors
Psych: Calm
Data Reviewed
-
Labs: Labs Reviewed by me, Discussed with Physician and Discussed with Patient
[2024-04-26 15:10] VITALS: BP 111/65
[2024-04-26] MEDS: MONISTAT-3 (MICONAZOLE) 200 MG VAG (15:53)
--- NOTE | 2024-04-26 16:42 | W.PN.UPDATE ---
Update Note
Progress Note Update
UPDATE: Spoke with patient's Forestry Scientist, Dr. Kathie Barton DO, this afternoon. Reviewed her recent hospital course and ongoing hepatocellular induced liver injury. From prior outpatient labs at [facility], previous AST 59 and ALT 69 back on 04/18/2024.
She was previously on Imuran and Plaquenil for years, started Benlysta in the spring time around November while tapering off her Imuran. Benlysta is not known to cause DILI (category E per Liver Tox). Concern for possible lupus-induced hepatitis versus
underlying AIH versus atypical infectious etiology (HSV, EBV, etc). DILI seems much less likely at this time. Agrees with work-up and additionally also in agreement in pursuing liver biopsy as the etiology of her transaminases remain unclear. She
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 Additionally, SLE-induced hepatitis is exceedingly rare and only case reports of lupus hepatitis in literature. Her Forestry Scientist also
recommended pursuing Rheumatology consult while inpatient for further evaluation and management with ongoing steroids (currently on IV Dexamethasone). Discussed with hospitalist this afternoon. GI will continue to follow.
[2024-04-26 18:13] LABS: Ceruloplasmin 30 mg/dL (16-45)
[2024-04-26 18:15] LABS: Alpha-1-Antitrypsin 168 mg/dL (90-200)
[2024-04-26 18:52] LABS: Urine Albumin Negative (Neg - Trace); Urine Bilirubin Negative (Negative); Urine Character Slightly Cloudy (Clear); Urine Color Yellow; Urine Glucose Negative (Negative); Urine Ketone Negative (Negative); Urine Leukocyte 2+ (Negative); Urine Nitrite Negative (Negative); Urine Occult Blood Negative (Negative); Urine Specific Gravity 1.015 (<1.030); Urine Urobilinogen Negative (Neg - 1+)
[2024-04-26 19:02] LABS: Urine Red Blood Cell 0-2 /HPF (0-2); Urine White Cell >100 /HPF (0-5)
[2024-04-26 19:03] LABS: Urine Bacteria Moderate (Negative)
[2024-04-26] MEDS: TORADOL 30 MG IV (20:20)
[2024-04-26 23:32] VITALS: BP 123/70
[2024-04-27 00:33] LABS: ANA, IgG Reflex to HEp-2 Detected (None Detected)
[2024-04-27 02:50] LABS: Mitochondrial M2 Ab, IgG 7.9 Units (0.0-24.9)
--- NOTE | 2024-04-27 03:27 | DOWNTIME ---
There was a [employer] Client Prefitter Downtime on 04/27/2024 from 0100 to 04/27/2024 at 0300. Downtime documentation of patient's care, including medication administrations, has been reconciled in the electronic record per guidelines. Refer to the
patient's paper chart under the miscellaneous tab to see printed paper medication records and downtime forms.
[2024-04-27 07:00] VITALS: BP 112/71
[2024-04-27] MEDS: DECADRON 4 MG IV ×2 (07:33→19:42)
[2024-04-27] MEDS: ROXICODONE 5 MG PO ×2 (08:39→14:13)
[2024-04-27 08:50] LABS: % Basophils 0.2 % (0-2); % Lymphocytes 10.6 % (20.5-51.1); % Monocytes 7.5 % (1.7-9.3); % Neutrophils 80.7 % (42.2-75.2); Absolute Immature Granulocytes 0.1 10^3/uL (0-0.05); Absolute Lymphocytes 1.3 10^3/uL (1.2-3.4); Absolute Monocytes 0.9 10^3/uL (0.1-0.6); Absolute Neutrophils 9.9 10^3/uL (1.4-6.5); Hematocrit 34.9 % (37.0-47.0); Hemoglobin 10.8 g/dL (12.0-16.0); Mean Corp Hgb Conc. 30.9 g/dL (33.0-37.0); Mean Corpuscular Hgb 30.3 pg (27.0-31.0); Mean Corpuscular Volume 97.8 fL (81.0-99.0); Mean Platelet Volume 9.8 fL (7.4-10.4); Nucleated Red Blood Cells % 0 %; Platelet Count 442 10^3/uL (130-400); Red Blood Cell Count 3.57 10^6/uL (4.20-5.40); Red Cell Dist. Width 16.6 % (11.5-14.5); White Blood Cell Count 12.3 10^3/uL (4.8-10.8)
--- NOTE | 2024-04-27 08:56 | CON.GI ---
Medical History
Allergies / Home Medications
Allergy/AdvReac Type Severity Reaction Status Date / Time
Sulfa (Sulfonamide Allergy Rash Verified 04/24/24 06:05
Antibiotics)
�Medication �Instructions �Recorded
belimumab 200 mg/mL subcutaneous 200 mg SC QWEEK Autoimmune Disorder 04/24/24
auto-injector (Benlysta)
dextroamphetamine-amphetamine 15 15 mg PO BID ADHD 04/24/24
mg tablet (Adderall)
hydroxychloroquine 200 mg tablet 200 mg PO .EVERY OTHER DAY 04/24/24
(Plaquenil) Autoimmune Disorder
prednisone 10 mg tablet 10 mg PO DAILY Anti-Inflammatory 04/24/24
Review of Systems
Vital Signs
Temp Pulse Resp BP Pulse Ox
98.2 F 63 20 112/71 100
04/27/24 07:00 04/27/24 07:00 04/27/24 07:00 04/27/24 07:00 04/27/24 07:00
Physical Exam
Results
WBC 12.3 10^3/uL (4.8-10.8) H 04/27/24 08:13
Hgb 10.8 g/dL (12.0-16.0) L 04/27/24 08:13
Hct 34.9 % (37.0-47.0) L 04/27/24 08:13
MCV 97.8 fL (81.0-99.0) 04/27/24 08:13
Plt Count 442 10^3/uL (130-400) H 04/27/24 08:13
Absolute Neuts (auto) 9.9 10^3/uL (1.4-6.5) H 04/27/24 08:13
PT 14.3 Sec (11.4-14.6) 04/26/24 07:10
INR 1.12 04/26/24 07:10
Sodium 142 mmol/L (135-145) 04/26/24 07:10
Potassium 4.7 mmol/L (3.5-5.1) 04/26/24 07:10
Chloride 108 mmol/L (98-107) H 04/26/24 07:10
Carbon Dioxide 26 mmol/L (22-30) 04/26/24 07:10
BUN 11 mg/dl (7-17) 04/26/24 07:10
Creatinine 0.5 mg/dL (0.6-1.0) L 04/26/24 07:10
Calcium 9.4 mg/dl (8.4-10.2) 04/26/24 07:10
Total Bilirubin 1.1 mg/dl (0.2-1.3) 04/26/24 07:10
AST 346 U/L (14-36) H 04/26/24 07:10
ALT 650 U/L (0-35) H* 04/26/24 07:10
Alkaline Phosphatase 71 U/L (38-126) 04/26/24 07:10
Lipase 54 U/L (23-300) 04/24/24 07:40
Hepatitis A IgM Ab Cancelled 04/26/24 09:00
Hepatitis A Ab Total Negative (Negative) 04/25/24 06:25
Hep Bs Antibody Negative 04/25/24 06:25
Hep B Core Total Ab Negative (Negative) 04/25/24 06:25
Hep B Core IgM Ab Cancelled 04/25/24 06:25
Hepatitis C Antibody Negative (Negative) 04/25/24 06:25
Diagnostic Image Results:
Prior GI Procedures:
EGD:
Colonoscopy:
Assessment / Plan
-
Ms Wilde is a 33 y.o female with past medical history of SLE who presented with a lupus flare and found to have incidental elevated transaminases.
#Elevated LFTs
#Moderate Hepatocellular-induced Liver Injury
#Hx of SLE (on Hydroxychloroquine and Belimumab)
Impression: Found to have AST/ALT in 400s with otherwise normal cholestatic labs and intact synthetic function. Concern for underlying SLE flare given symptomatology on admission. Etiology of her hepatocellular induced liver injury concerning for
possible lupus involvement of her liver (ie lupus hepatitis) versus overlap AIH with SLE versus hepatotoxicity (less likely as hydroxychloroquine category C and belimumab category E per Liver Tox) versus underlying viral hepatitis versus other
metabolic and/or hereditary cause of liver disease. No other concern for ischemia as without hypotension or other potential concern for DILI.
Liver US 04/24/2024 without steatosis, fibrosis, hepatomegaly and was grossly unremarkable.
AST 310 -> 389 and ALT 419 -> 537, with nml ALP and intact synthetic function with INR 1.19
Viral hepatitis (-) including: Total HAV (-), HBsAg (-), HBsAb (-), HBcAb (-) and HCV (-) ; Pending serologic w/u along with Celiac testing ; total IgG lvls elevated 3182
Recommendations:
- Trend LFTs and INR q daily
- Favor continued monitoring until transaminases peak and/or plateau, particularly her ALT - will f/u AM labs
- Await rest of serologic w/u for underlying metabolic, hereditary and autoimmune liver disease
- Remains on IV Dexamethasone given SLE flare, however may confound clinical picture if concern for possible AIH if liver bx were to be performed
- Await serologic w/u and will consider liver bx this admission particularly if viral hepatitis has been r/o as AIH versus SLE-induced hepatitis remains highest on differential
- Will additionally check extended infectious w/u including: VZV, HSV CMV and EBV given her immunosuppression and SLE. Will need to d/w lab regarding additional atypical infectious w/u
- Avoid hepatotoxic medications
- Will attempt to reach patient's Fish Tender, Dr. Kathie Barton, this afternoon
- Rest of care per primary team
-
-
Thank you for consultation and allowing me to participate in the patient's care. Please call the electronic integrated systems mechanic GI physician during the after hours with any questions or concerns.
--- NOTE | 2024-04-27 08:57 | W.PN.GI.CBS2 ---
Today's Communication / Plan
-
Pending rest of extended lab serologies along with repeat LFTs this AM. Recommend IR consult for liver biopsy today. Rest of care as outlined below.
Assessment / Plan
-
Ms Wilde is a 33 y.o female with past medical history of SLE who presented with a lupus flare and found to have incidental elevated transaminases.
#Elevated LFTs
#Moderate Hepatocellular-induced Liver Injury
#Hx of SLE (on Hydroxychloroquine and Belimumab)
Impression: Found to have AST/ALT in 400s with otherwise normal cholestatic labs and intact synthetic function. Concern for underlying SLE flare given symptomatology on admission. Etiology of her hepatocellular induced liver injury concerning for
possible lupus involvement of her liver (ie lupus hepatitis) versus overlap AIH with SLE versus hepatotoxicity (less likely as hydroxychloroquine category C and belimumab category E per Liver Tox) versus underlying viral hepatitis versus other
metabolic and/or hereditary cause of liver disease. No other concern for ischemia as without hypotension or other potential concern for DILI.
Liver US 04/24/2024 without steatosis, fibrosis, hepatomegaly and was grossly unremarkable.
Work-up thus far:
Viral hepatitis (-) including: Total HAV (-), HBsAg (-), HBsAb (-), HBcAb (-) and HCV (-) ;
Serologic w/u: Elevated total IgG leves (3182) and (+) SHRUTHI ; (-) ceruloplasmin and (-) AMA ab
AST 310 -> 389 -> 346 -> and ALT 419 -> 537 -> 650, with nml ALP and intact synthetic function with INR 1.19
Recommendations:
- Continue to trend LFTs and INR q daily
- Favor continued monitoring until transaminases peak and/or plateau, particularly her ALT
- Remains on IV Dexamethasone given SLE flare, defer to Rheum and primary team. However, may confound clinical picture if concern for possible AIH if liver bx were to be performed
- Await rest of serologic w/u for underlying metabolic, hereditary and autoimmune liver disease (pending rest of AIH labs including ASMA, anti-LKM, and anti-SLA)
- Ordered extended infectious w/u including serologies and PCR testing for HSV and CMV along with serologies for VZV and EBV given her chronic immunosuppression. Miscellaneous labs (send-out)
- Discussed with Cake Knocker and in agreement in regards to pursuing liver biopsy given concern for possible AIH versus lupus hepatitis (very rare) versus DILI (doubt)
- Recommend IR consult for liver biopsy today
- If LFTs continue to rise and/or increase in T Bili will consider IV NAC, but defer at this time
- Avoid hepatotoxic medications
- Primary team in discussion with outpatient Rheum for further management regarding steroids and ongoing w/u
- Rest of care per primary team
Subjective
Subjective
Date of Service: April 27, 2024
- Discussed with patient's Cake Knocker, Dr. Kathie Barton DO, yesterday evening (see update note written from 04/26)
- Repeat labs this AM still pending
- Otherwise, no acute events overnight
Resting comfortably, still denies any RUQ abdominal pain, nausea or vomiting. Still with profound fatigue and generalize malaise.
Objective
Data Reviewed
Laboratory Data:
Laboratory Results
04/27/24 08:13
Laboratory Results
PT 14.3 Sec (11.4-14.6) 04/26/24 07:10
INR 1.12 04/26/24 07:10
Total Bilirubin 1.1 mg/dl (0.2-1.3) 04/26/24 07:10
AST 346 U/L (14-36) H 04/26/24 07:10
ALT 650 U/L (0-35) H* 04/26/24 07:10
Alkaline Phosphatase 71 U/L (38-126) 04/26/24 07:10
Lipase 54 U/L (23-300) 04/24/24 07:40
Vital Signs and I&O:
Vital Signs
Temp Pulse Resp BP Pulse Ox
98.2 F 63 20 112/71 100
04/27/24 07:00 04/27/24 07:00 04/27/24 07:00 04/27/24 07:00 04/27/24 07:00
I&O
04/26/24 04/27/24 04/28/24
06:59 06:59 06:59
Intake Total 1919
Balance 1919
Physical Exam
Physical Exam
HEENT: Anicteric and Moist mucous membranes
Cardiology: Normal Sinus Rhythm
Pulmonary: Clear and Other (Normal WOB on room air)
GI: Soft, Non Distended, Non Tender and Other (No hepatosplenomegaly)
Extremities: No Edema
Neuro: Non Focal and Other (AAOx3; no asterixis)
[2024-04-27 08:59] LABS: Erythrocyte Sed Rate 41 mm/hour (0-20)
[2024-04-27 09:00] LABS: INR 1.05; PT 13.8 Sec (11.4-14.6)
[2024-04-27 10:30] LABS: ALT (SGPT) 632 U/L (0-35); AST (SGOT) 236 U/L (14-36); Albumin 4.2 g/dl (3.5-5.0); Alkaline Phosphatase 83 U/L (38-126); Blood Urea Nitrogen 13 mg/dl (7-17); Calcium 9.5 mg/dl (8.4-10.2); Carbon Dioxide 25 mmol/L (22-30); Chloride 104 mmol/L (98-107); Direct Bilirubin 0.2 mg/dl (0.0-0.4); Estimated Creatinine Clearance 121 ml/min; Glucose 97 mg/dl (70-99); Potassium 4.6 mmol/L (3.5-5.1); Sodium 142 mmol/L (135-145); Total Bilirubin 1.1 mg/dl (0.2-1.3); Total Protein 8.6 g/dl (6.3-8.2); eGFR > 60.00
--- NOTE | 2024-04-27 10:34 | CM ---
Home no needs when stable.
Plan; Home
[2024-04-27] MEDS: LMX 4 1 APPLIC TOPICAL (10:57)
[2024-04-27] MEDS: MONISTAT-3 (MICONAZOLE) 200 MG VAG (10:57)
--- NOTE | 2024-04-27 11:56 | W.PN.HOSP.TC ---
Today's Communication/Plan
-
Continue with IV steroid course
Follow-up pending serological and immunologic studies
Plan for liver biopsy with IR
Trend LFTs, inflammatory markers
Assessment / Plan
Assessment / Plan
#Acute lupus flare
-Home medications include belimumab weekly and hydroxychloroquine EOD
-Joint predominant, history of cerebritis(?), no known history of renal or skin involvement
-Presented with worsening joint pain, elevated ESR and CRP on admission lab
-Started on IV dexamethasone regimen, with downtrending inflammatory markers
-Ordered anti-dsDNA, C3 and C4 levels yesterday with results pending
-Patient's primary grades 1 thru 6 visiting teacher is recommending LP due to memory impairment
Plan
-Continue with IV dexamethasone 4 mg every 12 hours
-Continue with hydroxychloroquine regimen EOD
-Continue to trend inflammatory markers, clinical status
-Follow-up on anti-dsDNA, complement levels
-Consider lumbar puncture to assess memory impairment
#Transaminitis
-Differentials include lupus with hepatic involvement, other autoimmune process; low suspicion for AIH, Liu's, hemochromatosis
-Initial labs showed elevated AST and ALT; ALP and bilirubin levels were WNL; liver US was unremarkable
-Serology pending: SHRUTHI, antimitochondrial, soluble liver Ag, F-actin, celiac's panel, ceruloplasmin and a-1-AT
-Hep A, hep B, hep C serology was negative
-Viral serology pending: CMV, EBV, HSV, VZV
-AST and ALT have now started downtrending
Plan
-Continue to trend LFTs daily
-Avoid unnecessary hepatotoxins as possible
-Follow-up serological studies as above
-Inpatient liver biopsy with IR today
#Vaginal discharge
-States over the last 2 days she has had yellow discharge, associated with pruritus
-States she denies any high risk sexual encounters, is and monogamous
-Ordered vaginal culture to further assess possible infectious etiology that can be treated
-Started miconazole cream empirically
Plan
-Continue with empiric miconazole
-Obtain sample at discharge to assess
-Consider empiric treatment for BV with Flagyl
#Subclinical hyperthyroidism
-No free T4 on labs available, added on T4 to further delineate
-No obvious signs or symptoms of thyroid dysfunction as of now
-Free T4 levels were normal
#Memory impairment
-Her grades [address] Kathie [place] in [place] initially recommended coming to the ER for lumbar puncture
-However she does not have any meningeal signs, lab studies here were unremarkable for causes
-Recommend following up with neurology outpatient
DVT prophylaxis: SCDs
Diet: Regular
CODE STATUS: Full code
Anticipated Discharge: 24 - 48 hours
Subjective/Interval History
-
Date of Service: April 27, 2024
Seen and examined at the bedside. No acute events overnight. AFVSS this morning.
Yesterday evening GI spoke with the patient's primary grades 1 thru 6 visiting teacher. The patient is also spoken with the grades 1 thru 6 visiting teacher as well. Mentioned that her presenting symptoms were memory impairment, concern over possible cerebritis. Her primary
grades 1 thru 6 visiting teacher does recommend a lumbar puncture while in the hospital here. Currently pending IR liver biopsy that will likely occur today, will plan for LP after recovery.
Her LFTs have started to downtrend. Pain in her knees and back is slightly improved though still present. States she is still having consistent vaginal pruritus and discharge. Feels that her mental fog is the same as when she came in, as his
fatigue
She denies any other acute complaints including fevers or chills, chest pain, shortness of breath, nausea, vomiting, diarrhea, abdomen pain, urinary issues, abnormal bleeding or bruising, paresthesias or weakness.
Objective Data
-
Labs:
Laboratory Results
04/27/24 04/27/24
08:12 08:13
WBC 12.3 H
Hgb 10.8 L
Hct 34.9 L
Plt Count 442 H
PT 13.8
INR 1.05
Sodium 142
Potassium 4.6
Chloride 104
Carbon Dioxide 25
BUN 13
Creatinine 0.5 L
Glucose 97
Calcium 9.5
Total Bilirubin 1.1
AST 236 H
ALT 632 H*
Alkaline Phosphatase 83
Vital Signs:
Vital Signs
Temp Pulse Resp BP Pulse Ox
98.2 F 63 20 112/71 100
04/27/24 07:00 04/27/24 07:00 04/27/24 07:00 04/27/24 07:00 04/27/24 07:00
I&O
04/26/24 04/27/24 04/28/24
06:59 06:59 06:59
Intake Total 1919
Balance 1919
Review of Systems
-
History Source: Patient
All other systems: Reviewed and negative
Physical Exam
-
General: Well Nourished, No Apparent Distress and Comfortable
HEENT: Normocephalic, Atraumatic, Moist Mucous Membranes and Anicteric
Respiratory: Clear to Auscultation and Non Labored Respirations; Negative Wheezes, Rales or Rhonchi
Cardiac: Regular Rhythm and S1/S2; Negative Murmur, Rub or Gallop
GI: Soft, Nontender, Nondistended and Normal Bowel Sounds
Musculoskeletal: No Clubbing, No Cyanosis, No Edema, Normal Gait & Station and Other (No tenderness to palpation of knees or back)
Skin: Warm, Dry and Normal Turgor; Negative Rash or Jaundice
Neuro: AO x 3, Nonfocal/Grossly Intact and Other (Cranial nerves grossly intact); Negative Tremors
Hematologic / Lymphatic: No Lymphadenopathy
Psych: Calm
Data Reviewed
-
Labs: Labs Reviewed by me and Discussed with Physician (GI)
[2024-04-27 13:30] VITALS: BP 103/66
[2024-04-27 14:28] LABS: Troponin I < 0.012 ng/ml
[2024-04-27 14:31] LABS: F-Actin Antibody IgG 21 Units (0-19)
[2024-04-27 14:53] VITALS: BP 106/66
[2024-04-27 15:46] LABS: tTG IgA Antibody 3.3 EU/ml (0-19); tTG IgG Antibody 11.7 EU/ml (0-19)
[2024-04-27 18:50] LABS: Endomysial IgA Antibody Titer <1:10 (<1:10)
[2024-04-27] MEDS: TORADOL 30 MG IV (22:52)
[2024-04-27 23:21] LABS: Complement C3 83 mg/dl (88-165)
[2024-04-27 23:23] VITALS: BP 110/66
[2024-04-28] VITALS (14 sets, daily range): BP systolic 57–118; BP diastolic 57–72
[2024-04-28 01:18] LABS: Soluble Liver Antigen Ab 2.7 U (0.0-24.9)
[2024-04-28 03:02] LABS: EBV-NA IgG 15.4 U/mL (0.0-21.9); EBV-VCA IgG Antibodies >750.0 U/mL (0.0-21.9); EBV-VCA IgM Antibodies 69.7 U/mL (0.0-43.9)
[2024-04-28 04:10] LABS: EBV-VCA IgG Antibodies >750.0 U/mL (0.0-21.9)
[2024-04-28 04:20] LABS: HSV 1/2 Combined Screen, IgG 2.53 IV
[2024-04-28 04:36] LABS: CMV IgM Antibody 35.1 AU/mL (<=29.9)
[2024-04-28 05:35] LABS: CMV IgG Antibody >10.00 U/mL (<=0.70)
[2024-04-28] MEDS: PROTONIX 40 MG PO (07:39)
[2024-04-28] MEDS: DECADRON 4 MG IV ×2 (07:39→19:10)
[2024-04-28] MEDS: PLAQUENIL 200 MG PO (07:57)
[2024-04-28 08:23] LABS: % Basophils 0.5 % (0-2); % Immature Granulocytes 4.1 % (0-0.5); % Monocytes 7.8 % (1.7-9.3); % Neutrophils 75.6 % (42.2-75.2); Absolute Basophils 0.1 10^3/uL (0-0.2); Absolute Immature Granulocytes 0.6 10^3/uL (0-0.05); Absolute Lymphocytes 1.6 10^3/uL (1.2-3.4); Absolute Monocytes 1.1 10^3/uL (0.1-0.6); Absolute Neutrophils 10.2 10^3/uL (1.4-6.5); Hematocrit 36.2 % (37.0-47.0); Hemoglobin 11.3 g/dL (12.0-16.0); Mean Corp Hgb Conc. 31.2 g/dL (33.0-37.0); Mean Corpuscular Hgb 30.7 pg (27.0-31.0); Mean Corpuscular Volume 98.4 fL (81.0-99.0); Mean Platelet Volume 9.6 fL (7.4-10.4); Nucleated Red Blood Cells % 0 %; Platelet Count 464 10^3/uL (130-400); Red Blood Cell Count 3.68 10^6/uL (4.20-5.40); Red Cell Dist. Width 16.9 % (11.5-14.5); White Blood Cell Count 13.5 10^3/uL (4.8-10.8)
[2024-04-28 08:26] LABS: INR 1.02; PT 13.4 Sec (11.4-14.6)
[2024-04-28 08:37] LABS: Erythrocyte Sed Rate 33 mm/hour (0-20)
[2024-04-28 08:56] LABS: ALT (SGPT) 549 U/L (0-35); AST (SGOT) 172 U/L (14-36); Albumin 4.1 g/dl (3.5-5.0); Alkaline Phosphatase 75 U/L (38-126); Blood Urea Nitrogen 14 mg/dl (7-17); Calcium 9.7 mg/dl (8.4-10.2); Carbon Dioxide 25 mmol/L (22-30); Chloride 103 mmol/L (98-107); Direct Bilirubin 0.2 mg/dl (0.0-0.4); Estimated Creatinine Clearance 121 ml/min; Glucose 99 mg/dl (70-99); Potassium 4.5 mmol/L (3.5-5.1); Sodium 141 mmol/L (135-145); Total Protein 8.5 g/dl (6.3-8.2); eGFR > 60.00
--- NOTE | 2024-04-28 09:08 | W.PN.GI.CBS2 ---
Today's Communication / Plan
-
- Liver biopsy today
-Consider ID consult given EBV and CMV IgM, her level of immunosuppression and disease process
Assessment / Plan
-
Ms Wilde is a 33 y.o female with past medical history of SLE who presented with a lupus flare and found to have incidental elevated transaminases.
#Elevated LFTs
#Moderate Hepatocellular-induced Liver Injury
#Hx of SLE (on Hydroxychloroquine and Belimumab)
Impression: Found to have AST/ALT in 400s with otherwise normal cholestatic labs and intact synthetic function. Concern for underlying SLE flare given symptomatology on admission. Etiology of her hepatocellular induced liver injury concerning for
possible lupus involvement of her liver (ie lupus hepatitis) versus overlap AIH with SLE versus hepatotoxicity (less likely as hydroxychloroquine category C and belimumab category E per Liver Tox) versus underlying viral hepatitis versus other
metabolic and/or hereditary cause of liver disease. No other concern for ischemia as without hypotension or other potential concern for DILI.
Liver US 04/24/2024 without steatosis, fibrosis, hepatomegaly and was grossly unremarkable.
Work-up thus far as of 04/28/2024:
Viral hepatitis (-) including: Total HAV (-), HBsAg (-), HBsAb (-), HBcAb (-) and HCV (-) ;
CMV IgM elevated, EBV IgM elevated. HSV 1 and 2 antibody negative, PCR pending
Serologic w/u: Elevated total IgG leves (3182) and (+) SHRUTHI ; (-) ceruloplasmin and (-) AMA ab
AST 310 -> 389 -> 346 -> and ALT 419 -> 537 -> 650, with nml ALP and intact synthetic function with INR 1.19
Recommendations:
- Continue to trend LFTs and INR q daily
- Favor continued monitoring until transaminases peak and/or plateau, particularly her ALT
- Remains on IV Dexamethasone given SLE flare, defer to Rheum and primary team. However, may confound clinical picture if concern for possible AIH if liver bx were to be performed
- Await rest of serologic w/u for underlying metabolic, hereditary and autoimmune liver disease (pending rest of AIH labs including ASMA, anti-LKM, and anti-SLA)
- Ordered extended infectious w/u including serologies and PCR testing for HSV and CMV along with serologies for VZV and EBV given her chronic immunosuppression. Miscellaneous labs (send-out)
- Discussed with [employer] and in agreement in regards to pursuing liver biopsy given concern for possible AIH versus lupus hepatitis (very rare) versus DILI (doubt)
- Recommend IR consult for liver biopsy today
- If LFTs continue to rise and/or increase in T Bili will consider IV NAC, but defer at this time
- Avoid hepatotoxic medications
- Primary team in discussion with outpatient Rheum for further management regarding steroids and ongoing w/u
- Rest of care per primary team
04/28/2024 -for liver biopsy today
-Hopeful spinal tomorrow given that is why she was admitted -discussed with hospitalist and with the patient. She will discuss that with IR when she is down there
-ALT with slight improvement today from 6 32-->5 49. Bilirubin is still normal which is great and a good sign
-Etiology of her hepatocellular injury is unclear but may be autoimmune in nature, considering her amount of immunosuppression also have to consider less common viral etiologies which most of those labs are pending
-Review of some viral studies that have returned include elevated IgM for CMV and EBV -due to her complex immunosuppression and disease process, would get ID involved -discussed with hospitalist
Subjective
Subjective
Date of Service: April 28, 2024
Patient with minimal nausea. Some constipation
Objective
Data Reviewed
Laboratory Data:
Laboratory Results
04/28/24 07:29
04/28/24 07:29
Laboratory Results
PT 13.4 Sec (11.4-14.6) 04/28/24 07:29
INR 1.02 04/28/24 07:29
Total Bilirubin 1.0 mg/dl (0.2-1.3) 04/28/24 07:29
AST 172 U/L (14-36) H 04/28/24 07:29
ALT 549 U/L (0-35) H* 04/28/24 07:29
Alkaline Phosphatase 75 U/L (38-126) 04/28/24 07:29
Lipase 54 U/L (23-300) 04/24/24 07:40
Vital Signs and I&O:
Vital Signs
Temp Pulse Resp BP Pulse Ox
98.4 F 63 20 117/72 100
04/28/24 07:00 04/28/24 07:00 04/28/24 07:00 04/28/24 07:00 04/28/24 07:00
I&O
04/27/24 04/28/24 04/29/24
06:59 06:59 06:59
Intake Total 1859 / 1859 1440 / 1440
Balance 1859 / 1859 1440 / 1440
Physical Exam
Physical Exam
HEENT: Anicteric
GI: Soft
[2024-04-28] MEDS: MIRALAX PO (09:17)
[2024-04-28 10:07] LABS: C-Reactive Protein < 5.00 mg/L (0.0-10.00)
[2024-04-28 10:23] LABS: Vitamin D, 25-OH*** 28.7 ng/mL (30-80)
--- NOTE | 2024-04-28 10:24 | CON.ID ---
Consultation
-
Date/Time Consultation Requested: April 28, 2024 0931
Date/Time Consultation Performed: April 28, 2024 1025
Requesting Provider: Dr. Katherine Martin
Performing Provider: Dr. Jackelin Ladd
Reason for Consultation: Immunosuppression, elevated LFT's, Elevated EBC/CMV
Chief Complaint / Past History
Chief Complaint
Fatigue, lupus flare
History of Present Illness
33 year old female with hx SLE on belimumab and hydroxychloroquine who presented to ED 04/24/24 as instructed by her Certified [employer] Administrator to evaluate for lupus cerebirits. She started feeling unwell 2.5 weeks ago with significant fatigue, low back pain ,
body stiffness, headache, and worsening brain fog. She was mixing up numbers and forgetful. She had lab work done on 04/18/24 which showed mildly elevated AST 59, ALT 69. In February 2024 T. bili 1.7, AST nl, ALT nl. She was placed on prednisone 30mg
taper by 10mg every 3days without improvement of sxs. She was then advised to go to ED for LP to rule out lupus cerebritis. However, pt's LFT's noted to be elevated AST peaked to 389, ALT peaked at 650. Acute Hep A , Hep B negative. CMV IgG and
IgM positive. EBV serologies also positive. She is for liver bx today. Pt denies fevers or chills. She did have sore throat 2 weeks ago. No swollen glands. No abd pain. No diarrhea. No ill contacts. Her 2 year old son goes to daycare but he is
fine. No hx of mononucleosis. No pets. No travel. No tick exposure as she stays indoors. She works from home and in the office. She is currently on IV steroid which helps with her body stiffness. Still very fatigued. For LP tomorrow. SLE flare is
rare for for her.
Past History
Additional Past Medical History:
SLE on belimumab, hydroxychloroquine.
ADHD
Additional Past Surgical History:
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
Allergy History:
Sulfa (Sulfonamide Antibiotics) Allergy (Verified 04/24/24 06:05)
Rash
Medications Reviewed: Yes
Current Antibiotics:
none
Social History
Tobacco: Non-Smoker
Alcohol: None
Drug: None
Personal:
Living: With Family ( and son. No pets)
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 )
Family History
Family History: Not Pertinent
Review of Systems
Review of Systems
General: Negative Fever or Chills
HEENT: Negative Lymphadenopathy, Stiff Neck or Sinus Problems
Cardiovascular: Negative Chest Pain
Respiratory: Negative Dyspnea or Cough
Gasteroenterology: Other (no diarrhea); Negative Vomiting
Genital / Urological: Other (+vaginal discharge); Negative Dysuria or Flank Pain
Endocrine: Fatigue
Skin / Hair / Nails: Negative Rash
Neurological: Negative Dizziness
All systems: All other systems were reviewed and were negative
Vital Signs
Temp Pulse Resp BP Pulse Ox
98.4 F 63 20 117/72 100
04/28/24 07:00 04/28/24 07:00 04/28/24 07:00 04/28/24 07:00 04/28/24 07:00
Physical Exam
Physical Exam
Constitutional: No Acute Distress and Comfortable
Head: Normocephalic (No frontal or maxillary sinus tendereness. )
Eyes: No Conjunctival Hemorrhage and Sclera Anicteric
Pharynx: Benign
Lymph Nodes: Negative Lymphadenopathy
Cardiovascular: Regular Rate and S1/S2
Pulmonary: Clear
Gastrointestinal: Soft, Non Tender, Non Distended and Normal Bowel Sounds
Genito-Urinary: Negative CVA Tenderness
Extremities: Negative Edema
Musculoskeletal: Negative Spinal Tenderness
Neurological: AO x 3
Lab / Diagnostic Study Results
04/28/24 07:29
04/28/24 07:29
Abs Immat Gran (auto) 0.6 10^3/uL (0-0.05) H 04/28/24 07:29
Absolute Neuts (auto) 10.2 10^3/uL (1.4-6.5) H 04/28/24 07:29
Absolute Lymphs (auto) 1.6 10^3/uL (1.2-3.4) 04/28/24 07:29
Absolute Monos (auto) 1.1 10^3/uL (0.1-0.6) H 04/28/24 07:29
Absolute Basos (auto) 0.1 10^3/uL (0-0.2) 04/28/24 07:29
Immature Gran % 4.1 % (0-0.5) H 04/28/24 07:29
Neutrophils % 75.6 % (42.2-75.2) H 04/28/24 07:29
Lymphocytes % 12.0 % (20.5-51.1) L 04/28/24 07:29
Monocytes % 7.8 % (1.7-9.3) 04/28/24 07:29
Eosinophils % 0.0 % (0-6) 04/28/24 07:29
Basophils % 0.5 % (0-2) 04/28/24 07:29
ESR 33 mm/hour (0-20) H 04/28/24 07:29
PT 13.4 Sec (11.4-14.6) 04/28/24 07:29
INR 1.02 04/28/24 07:29
C-Reactive Protein < 5.00 mg/L (0.0-10.00) 04/28/24 07:29
Urine WBC >100 /HPF (0-5) A 04/26/24 18:37
Ur Squamous Epith Cells 6-10 /LPF (Few) 04/24/24 07:40
Microbiology Results
Micro:
04/25/24 14:42 Genital Culture - Preliminary
Vagina
04/24/24 07:40 Urine Culture - Final
Urine
04/24/24 Abd US: Unremarkable abdominal ultrasound.
Assessment / Plan
# Recent primary EBV infection
# Elevated transaminases
# SLE
# Fatigue, bodyaches/stiffness, cognitive changes
- EBV VCA IgG+, IgM+, EA Ab +, EBNA negative => suggestive of recent primary EBV.
-The CMV IgM+ likely false positive (cross-reactivity with EBV) vs low level reactivation from acute medical consition, which is not significant.
- If the transaminitis is associated with EBV, it is self-limited.
- There is no antiviral tx for EBV.
--- NOTE | 2024-04-28 10:32 | W.PN.HOSP.TC ---
Today's Communication/Plan
-
Liver biopsy today
Lumbar puncture tomorrow
Continue with steroid and hydroxychloroquine regimen
Trend daily LFTs
Start vitamin D
ID consult for EBV and CMV
Assessment / Plan
Assessment / Plan
#Acute lupus flare
-Home medications include belimumab weekly and hydroxychloroquine EOD
-Joint predominant, history of cerebritis(?), no known history of renal or skin involvement
-Presented with worsening joint pain, elevated ESR and CRP on admission lab
-Started on IV dexamethasone regimen, with downtrending inflammatory markers
-Ordered anti-dsDNA, C3 and C4 levels; C3 and C4 levels mildly below normal limits
-Patient's primary family practice nurse practitioner is recommending LP due to memory impairment
Plan
-Continue with IV dexamethasone 4 mg every 12 hours
-Continue with hydroxychloroquine regimen EOD
-Continue to trend inflammatory markers, clinical status
-Follow-up on anti-dsDNA titers
-Plan for LP tomorrow to rule out cerebritis
#Transaminitis
-Differentials include AIH versus hepatic involvement of lupus
-Initial labs showed elevated AST and ALT; ALP and bilirubin levels were WNL; liver US was unremarkable
-Serology pending: SHRUTHI, antimitochondrial, soluble liver Ag, F-actin, celiac's panel, ceruloplasmin and a-1-AT
-Hep A, hep B, hep C serology was negative; EBV and CMV titers were elevated
-AST and ALT have now started downtrending
Plan
-Continue to trend LFTs daily
-Avoid unnecessary hepatotoxins as possible
-Follow-up serological studies as above
-Inpatient liver biopsy with IR today
#Positive EBV and CMV serology
-Serological studies showed positive IgG and IgM for EBV and CMV
-Do not suspect that this is driving her hepatic process
-Infectious disease consulted for further guidance
#Vitamin D deficient
-Expect prolonged course of high-dose steroids, ordered vitamin D levels
-Came back at 28, low levels increase risk of osteoporosis on steroid
-Will start supplementing 50 mcg cholecalciferol daily
#Vaginal discharge
-States over the last 2 days she has had yellow discharge, associated with pruritus
-States she denies any high risk sexual encounters, is and monogamous
-Ordered vaginal culture to further assess possible infectious etiology that can be treated
-Started miconazole cream empirically, improving symptoms
#Subclinical hyperthyroidism
-No free T4 on labs available, added on T4 to further delineate
-No obvious signs or symptoms of thyroid dysfunction as of now
-Free T4 levels were normal
#Memory impairment
-Her family practice nurse practitioner Dr. Kathie Vegas in [place] initially recommended coming to the ER for lumbar puncture
-However she does not have any meningeal signs, lab studies here were unremarkable for causes
-Recommend following up with neurology outpatient
-Concern for cerebritis as above
DVT prophylaxis: SCDs
Diet: Regular
CODE STATUS: Full code
Anticipated Discharge: > 48 hours
Subjective/Interval History
-
Date of Service: April 28, 2024
Seen and examined at the bedside. No acute events overnight. AFVSS this morning
LFTs continue to downtrend, as to inflammatory markers. Complement levels resulted, C3 and C4 both mildly low. Mild clinical improvement since admission. Her vaginal discharge is improved/resolved. Knee pain does seem improved, especially to
right knee. Still with complaint of back pain and memory fog, fatigue that worsens throughout day
She denies chest pain, shortness of breath, fevers or chills, nausea, vomiting, diarrhea, abnormal bleeding or bruising, urinary issues, paresthesias or weakness
Objective Data
-
Labs:
Laboratory Results
04/28/24
07:29
WBC 13.5 H
Hgb 11.3 L
Hct 36.2 L
Plt Count 464 H
PT 13.4
INR 1.02
Sodium 141
Potassium 4.5
Chloride 103
Carbon Dioxide 25
BUN 14
Creatinine 0.6
Glucose 99
Calcium 9.7
Total Bilirubin 1.0
AST 172 H
ALT 549 H*
Alkaline Phosphatase 75
Vital Signs:
Vital Signs
Temp Pulse Resp BP Pulse Ox
98.4 F 63 20 117/72 100
04/28/24 07:00 04/28/24 07:00 04/28/24 07:00 04/28/24 07:00 04/28/24 07:00
I&O
04/27/24 04/28/24 04/29/24
06:59 06:59 06:59
Intake Total 1859 / 1859 1440 / 1440
Balance 1859 / 1859 1440 / 1440
Review of Systems
-
History Source: Patient
All other systems: Reviewed and negative
Physical Exam
-
General: Well Nourished, No Apparent Distress, Comfortable and Conversant
HEENT: Normocephalic, Atraumatic, Moist Mucous Membranes, Anicteric and Neck Non Tender
Respiratory: Clear to Auscultation and Non Labored Respirations; Negative Wheezes, Rales or Rhonchi
Cardiac: Regular Rhythm and S1/S2; Negative Murmur, Rub, JVD or Gallop
GI: Soft, Nontender, Nondistended and Normal Bowel Sounds
Musculoskeletal: No Clubbing, No Cyanosis, No Edema, Normal Gait & Station and Other (Trace swelling to right > left knee)
Skin: Warm and Dry; Negative Rash or Jaundice
Neuro: AO x 3, Nonfocal/Grossly Intact and Central Nerve's Intact
Psych: Calm
Data Reviewed
-
Labs: Labs Reviewed by me, Discussed with Physician and Discussed with Patient
[2024-04-28] MEDS: VITAMIN D3 (cholecalciferol) 50 MCG PO (12:20)
[2024-04-28] MEDS: MONISTAT-3 (MICONAZOLE) 200 MG VAG (12:21)
--- NOTE | 2024-04-28 13:47 | CM ---
Home no needs
Plan; Home with family, no needs.
[2024-04-28 15:39] LABS: Varicella Zoster IgG (VZV) Positive
--- NOTE | 2024-04-28 15:43 | W.PN.UPDATE ---
Update Note
Progress Note Update
- s/p ultrasound guided random liver biopsy
- 3 18g core samples obtained.
- Pt tolerated well. No immediate complications.
[2024-04-28] MEDS: ROXICODONE 5 MG PO (19:09)
[2024-04-28] MEDS: SENOKOT 17.2 MG PO (21:17)
[2024-04-28] MEDS: TORADOL 30 MG IV (21:58)
[2024-04-28 23:02] LABS: CMV Qnt NAAT Plasma Log IU/mL Not Detected log IU/mL; CMV Quant NAAT Plasma Interp Not Detected (Not Detected); CMV Quant by NAAT Plasma IU/mL Not Detected
[2024-04-29 07:16] LABS: Smooth Muscle Antibody Titer <1:20 (<1:20)
[2024-04-29 07:16] LABS: HSV 1 Glycoprotein G Ab, IgG <0.01 IV (<=0.89); HSV 2 Glycoprotein G Ab, IgG 0.07 IV (<=0.89)
[2024-04-29 07:35] VITALS: BP 111/66
[2024-04-29 07:47] LABS: Hematocrit 32.2 % (37.0-47.0); Hemoglobin 10.1 g/dL (12.0-16.0); Mean Corp Hgb Conc. 31.4 g/dL (33.0-37.0); Mean Corpuscular Hgb 29.8 pg (27.0-31.0); Mean Platelet Volume 9.6 fL (7.4-10.4); Platelet Count 444 10^3/uL (130-400); Red Blood Cell Count 3.39 10^6/uL (4.20-5.40); Red Cell Dist. Width 16.3 % (11.5-14.5); White Blood Cell Count 13.2 10^3/uL (4.8-10.8)
[2024-04-29 07:59] LABS: ALT (SGPT) 384 U/L (0-35); AST (SGOT) 108 U/L (14-36); Albumin 3.4 g/dl (3.5-5.0); Alkaline Phosphatase 68 U/L (38-126); Blood Urea Nitrogen 14 mg/dl (7-17); Calcium 9.3 mg/dl (8.4-10.2); Carbon Dioxide 24 mmol/L (22-30); Chloride 103 mmol/L (98-107); Direct Bilirubin 0.1 mg/dl (0.0-0.4); Estimated Creatinine Clearance 121 ml/min; Glucose 105 mg/dl (70-99); Potassium 4.8 mmol/L (3.5-5.1); Sodium 140 mmol/L (135-145); Total Bilirubin 0.9 mg/dl (0.2-1.3); Total Protein 7.3 g/dl (6.3-8.2); eGFR > 60.00
[2024-04-29 08:07] LABS: C-Reactive Protein < 5.00 mg/L (0.0-10.00)
[2024-04-29 08:08] LABS: Erythrocyte Sed Rate 24 mm/hour (0-20)
[2024-04-29] MEDS: MIRALAX 17 GRAMS PO (08:18)
[2024-04-29] MEDS: DECADRON 4 MG IV ×2 (08:18→20:17)
[2024-04-29] MEDS: PROTONIX 40 MG PO (08:18)
[2024-04-29] MEDS: VITAMIN D3 (cholecalciferol) 50 MCG PO (08:18)
[2024-04-29 08:53] LABS: % Basophils 0.3 % (0-2); % Immature Granulocytes 5.2 % (0-0.5); % Lymphocytes 9.9 % (20.5-51.1); % Monocytes 9.1 % (1.7-9.3); % Neutrophils 75.5 % (42.2-75.2); Absolute Immature Granulocytes 0.7 10^3/uL (0-0.05); Absolute Lymphocytes 1.3 10^3/uL (1.2-3.4); Absolute Monocytes 1.2 10^3/uL (0.1-0.6); Nucleated Red Blood Cells % 0.2 %
[2024-04-29 09:02] LABS: ANA, HEp-2, IgG Detected (<1:80)
--- NOTE | 2024-04-29 09:27 | W.PN.GI.CBS2 ---
Today's Communication / Plan
-
Transaminases improving, pending pathology results from liver biopsy as concern for resolving EBV infection versus AI-liver disease. Plan for spinal tap this afternoon. Rest as outlined below.
Assessment / Plan
-
Ms Wilde is a 33 y.o female with past medical history of SLE who presented with a lupus flare and found to have incidental elevated transaminases.
#Elevated LFTs
#Moderate Hepatocellular-induced Liver Injury
#Hx of SLE (on Hydroxychloroquine and Belimumab)
Impression: Found to have AST/ALT in 400s with otherwise normal cholestatic labs and intact synthetic function. Concern for underlying SLE flare given symptomatology on admission. Etiology of her hepatocellular induced liver injury concerning for
possible lupus involvement of her liver (ie lupus hepatitis) versus overlap AIH with SLE versus hepatotoxicity (less likely as hydroxychloroquine category C and belimumab category E per Liver Tox) versus underlying viral hepatitis versus other
metabolic and/or hereditary cause of liver disease. No other concern for ischemia as without hypotension or other potential concern for DILI.
Liver US 04/24/2024 without steatosis, fibrosis, hepatomegaly and was grossly unremarkable.
Work-up thus far as of 04/28/2024:
Viral hepatitis (-) including: Total HAV (-), HBsAg (-), HBsAb (-), HBcAb (-) and HCV (-) ;
CMV IgM elevated, EBV IgM elevated. HSV 1 and 2 antibody negative, PCR pending
Serologic w/u: Elevated total IgG levels (3182) and (+) SHRUTHI, (-) SLA, (-) ASMA (-) anti-LKM, ; (-) ceruloplasmin and (-) AMA ab, (-) Celiac serologies
Transaminases now improving AST (peaked 389 on 04/25) -> 108 and ALT (peaked 650 on 04/26) -> 384 along with normal ALP, T Bili and intact synthetic function with INR 1
S/p liver bx on 04/28 (path pending) ; EBV serologies concerning for recent primary EBV infection
Recommendations:
- Continue to trend LFTs and INR q daily
- Transaminases now peaked, monitor LFTs and T Bili q daily
- Unclear if elevated transaminases are due to resolving EBV infection given serologies versus autoimmune liver disease (AIH) as being treated with IV Dexamethasone for SLE flare versus SLE-induced hepatitis (very rare)
- S/p liver biopsy on 04/28, await pathology results
- Plan for IR spinal tap later today, 04/29/2024
- Will update her Therapist Physical later today
- Continue to await rest of serologic w/u and atypical infectious w/u as above
- No indication for IV Nac gtt at this time
- Avoid hepatotoxic medications
- Rest of care per primary team
Subjective
Subjective
Date of Service: April 29, 2024
- S/p IR guided liver bx on 04/28
- Transaminases improving with AST 172 -> 108 and ALT 549 -> 384
- ID further consulted on 04/28 given EBV serologies concerning for recent primary EBV infection
- Otherwise, no acute events overnight
Feeling well this AM, still fatigued but no other fevers or chills. Very minimal to mild RUQ discomfort after liver biopsy but no pain. Denies any nausea or vomiting. NPO for planned spinal tap with IR later today, 04/29.
Objective
Data Reviewed
Laboratory Data:
Laboratory Results
04/29/24 06:20
04/29/24 06:20
Laboratory Results
PT 13.4 Sec (11.4-14.6) 04/28/24 07:29
INR 1.02 04/28/24 07:29
Total Bilirubin 0.9 mg/dl (0.2-1.3) 04/29/24 06:20
AST 108 U/L (14-36) H 04/29/24 06:20
ALT 384 U/L (0-35) H 04/29/24 06:20
Alkaline Phosphatase 68 U/L (38-126) 04/29/24 06:20
Lipase 54 U/L (23-300) 04/24/24 07:40
Vital Signs and I&O:
Vital Signs
Temp Pulse Resp BP Pulse Ox
98.5 F 64 21 111/66 99
04/29/24 07:35 04/29/24 07:35 04/29/24 07:35 04/29/24 07:35 04/29/24 07:35
I&O
04/28/24 04/29/24 04/30/24
06:59 06:59 06:59
Intake Total 1440 / 1440 480 / 480
Balance 1440 / 1440 480 / 480
Physical Exam
Physical Exam
HEENT: Anicteric and Moist mucous membranes
Cardiology: Normal Sinus Rhythm
Pulmonary: Clear and Other (Normal WOB on room air)
GI: Soft, Non Distended, Non Tender and Other (Bandage over RUQ, c/d/i from prior liver biopsy)
Extremities: No Edema
Neuro: Non Focal
--- NOTE | 2024-04-29 11:02 | W.PN.HOSP.TC ---
Today's Communication/Plan
-
Plan for LP today, follow-up fluid studies
Follow-up liver biopsy results
Continue with IV steroid and hydroxychloroquine, trend inflammatory markers
Assessment / Plan
Assessment / Plan
#Acute lupus flare
-Home medications include belimumab weekly and hydroxychloroquine EOD
-Joint predominant, history of cerebritis(?), no known history of renal or skin involvement
-Presented with worsening joint pain, elevated ESR and CRP on admission lab
-Started on IV dexamethasone regimen, with downtrending inflammatory markers
-Ordered anti-dsDNA, C3 and C4 levels; C3 and C4 levels mildly below normal limits
-Patient's primary oral surgeon is recommending LP due to memory impairment
Plan
-Continue with IV dexamethasone 4 mg every 12 hours
-Continue with hydroxychloroquine regimen EOD
-Continue to trend inflammatory markers, clinical status
-Follow-up on anti-dsDNA titers
-Plan for LP with extensive fluid studies today for suspected cerebritis
#Transaminitis
-Differentials include AIH versus hepatic involvement of lupus; positive F-actin and SHRUTHI with response to steroid
-Initial labs showed elevated AST and ALT; ALP and bilirubin levels were WNL; liver US was unremarkable
-Serology pending: antimitochondrial, soluble liver Ag, ceruloplasmin and a-1-AT
-Hep A, hep B, hep C serology was negative; EBV and CMV titers were elevated
-AST and ALT have continued to downtrend towards normal limits
Plan
-Continue to trend LFTs daily
-Avoid unnecessary hepatotoxins as possible
-Follow-up serological studies as above
-Follow-up biopsy results
#Positive EBV and CMV serology
-Serological studies showed positive IgG and IgM for EBV and CMV
-Do not suspect that this is driving her hepatic process
-Infectious disease consulted for further guidance
#Vitamin D deficient
-Expect prolonged course of high-dose steroids, ordered vitamin D levels
-Came back at 28, low levels increase risk of osteoporosis on steroid
-Continue with supplementing 50 mcg cholecalciferol daily
#Vaginal discharge
-States over the last 2 days she has had yellow discharge, associated with pruritus
-States she denies any high risk sexual encounters, is and monogamous
-Ordered vaginal culture to further assess possible infectious etiology that can be treated
-Start Flagyl empirically
#Subclinical hyperthyroidism
-No free T4 on labs available, added on T4 to further delineate
-No obvious signs or symptoms of thyroid dysfunction as of now
-Free T4 levels were normal
#Memory impairment
-Her oral surgeon Dr. Kathie Vegas in [place] initially recommended coming to the ER for lumbar puncture
-However she does not have any meningeal signs, lab studies here were unremarkable for causes
-Recommend following up with neurology outpatient
-Concern for cerebritis as above
DVT prophylaxis: SCDs
Diet: Regular
CODE STATUS: Full code
Anticipated Discharge: > 48 hours
Subjective/Interval History
-
Date of Service: April 29, 2024
Seen and examined at bedside. No acute events overnight. AFVSS this morning.
She states she feels well, consistent mild improvement to joint pain. Still has mental fog and fatigue
Denies chest pain, shortness breath, fevers or chills, nausea, vomiting, diarrhea, constipation, abdomen pain, urinary issue, abnormal bleeding or bruising,
Objective Data
-
Labs:
Laboratory Results
04/29/24
06:20
WBC 13.2 H
Hgb 10.1 L
Hct 32.2 L
Plt Count 444 H
Sodium 140
Potassium 4.8
Chloride 103
Carbon Dioxide 24
BUN 14
Creatinine 0.6
Glucose 105 H
Calcium 9.3
Total Bilirubin 0.9
AST 108 H
ALT 384 H
Alkaline Phosphatase 68
Vital Signs:
Vital Signs
Temp Pulse Resp BP Pulse Ox
98.5 F 64 21 111/66 99
04/29/24 07:35 04/29/24 07:35 04/29/24 07:35 04/29/24 07:35 04/29/24 08:00
I&O
04/28/24 04/29/24 04/30/24
06:59 06:59 06:59
Intake Total 1440 / 1440 480 / 480
Balance 1440 / 1440 480 / 480
Review of Systems
-
History Source: Patient
All other systems: Reviewed and negative
Physical Exam
-
General: Well Nourished, No Apparent Distress and Comfortable
HEENT: Normocephalic, Atraumatic, Moist Mucous Membranes and Anicteric
Respiratory: Clear to Auscultation and Non Labored Respirations; Negative Wheezes, Rales or Rhonchi
Cardiac: Regular Rhythm and S1/S2; Negative Murmur, Rub or Gallop
GI: Soft, Nontender, Nondistended, Normal Bowel Sounds and Other (Mild discomfort at site of liver biopsy)
Musculoskeletal: No Clubbing, No Cyanosis, No Edema and Normal Gait & Station
Skin: Warm and Dry; Negative Rash or Jaundice
Neuro: AO x 3, Nonfocal/Grossly Intact and Central Nerve's Intact; Negative Tremors
Psych: Calm
Data Reviewed
-
Medical Tests (Nuc Med, Echo etc): Discussed with Physician (IR) and Discussed with Patient
Labs: Labs Reviewed by me and Discussed with Patient
[2024-04-29] MEDS: FLAGYL 500 MG PO ×3 (11:45→23:01)
--- NOTE | 2024-04-29 13:55 | CM ---
Home no needs.
Plan; Home no needs when stable.
[2024-04-29 14:45] VITALS: BP 118/59
[2024-04-29 16:19] LABS: HSV 1 Subtype by PCR Not Detected; HSV 2 Subtype by PCR Not Detected; Herpes Simplex Source Plasma
[2024-04-29] MEDS: FLUSH (NSS) 1 FLUSH IV (20:17)
[2024-04-29] MEDS: SENOKOT 17.2 MG PO (20:17)
[2024-04-29 22:54] LABS: ds-DNA Ab, IgG Reflex To Titer 25 IU (0-24)
[2024-04-29] MEDS: ROXICODONE 5 MG PO (23:03)
[2024-04-29 23:21] VITALS: BP 93/55
[2024-04-30 05:14] LABS: Hematocrit 31.1 % (37.0-47.0); Hemoglobin 9.9 g/dL (12.0-16.0); Mean Corp Hgb Conc. 31.8 g/dL (33.0-37.0); Mean Corpuscular Hgb 30.3 pg (27.0-31.0); Mean Corpuscular Volume 95.1 fL (81.0-99.0); Mean Platelet Volume 9.3 fL (7.4-10.4); Platelet Count 436 10^3/uL (130-400); Red Blood Cell Count 3.27 10^6/uL (4.20-5.40); Red Cell Dist. Width 16.5 % (11.5-14.5); White Blood Cell Count 16.1 10^3/uL (4.8-10.8)
[2024-04-30 05:20] LABS: ALT (SGPT) 332 U/L (0-35); AST (SGOT) 99 U/L (14-36); Albumin 3.4 g/dl (3.5-5.0); Alkaline Phosphatase 71 U/L (38-126); Blood Urea Nitrogen 15 mg/dl (7-17); Calcium 9.2 mg/dl (8.4-10.2); Carbon Dioxide 27 mmol/L (22-30); Chloride 102 mmol/L (98-107); Direct Bilirubin 0.2 mg/dl (0.0-0.4); Estimated Creatinine Clearance 121 ml/min; Glucose 152 mg/dl (70-99); Potassium 4.6 mmol/L (3.5-5.1); Sodium 138 mmol/L (135-145); Total Bilirubin 1.1 mg/dl (0.2-1.3); Total Protein 7.1 g/dl (6.3-8.2); eGFR > 60.00
[2024-04-30 05:21] LABS: C-Reactive Protein < 5.00 mg/L (0.0-10.00)
[2024-04-30 06:08] LABS: % Basophils 0.4 % (0-2); % Immature Granulocytes 6.8 % (0-0.5); % Lymphocytes 7.4 % (20.5-51.1); % Monocytes 8.7 % (1.7-9.3); % Neutrophils 76.7 % (42.2-75.2); Absolute Basophils 0.1 10^3/uL (0-0.2); Absolute Immature Granulocytes 1.1 10^3/uL (0-0.05); Absolute Lymphocytes 1.2 10^3/uL (1.2-3.4); Absolute Monocytes 1.4 10^3/uL (0.1-0.6); Absolute Neutrophils 12.4 10^3/uL (1.4-6.5); Nucleated Red Blood Cells % 0.2 %
[2024-04-30 07:02] VITALS: BP 123/81
[2024-04-30] MEDS: PROTONIX 40 MG PO (07:42)
[2024-04-30] MEDS: FLAGYL 500 MG PO ×2 (07:42→16:04)
[2024-04-30] MEDS: PLAQUENIL 200 MG PO (07:42)
[2024-04-30] MEDS: MIRALAX 17 GRAMS PO (07:42)
[2024-04-30] MEDS: DECADRON 4 MG IV ×2 (07:42→20:19)
[2024-04-30] MEDS: VITAMIN D3 (cholecalciferol) 50 MCG PO (07:42)
[2024-04-30 08:49] LABS: Erythrocyte Sed Rate 19 mm/hour (0-20)
--- NOTE | 2024-04-30 09:58 | W.PN.GI.CBS2 ---
Today's Communication / Plan
-
Please see assessment and plan for details.
Assessment / Plan
-
1. Elevated LFTs: In a marked necroinflammatory pattern, in setting of chronic immunosuppression and autoimmune disease, unclear etiology, possible viruses i.e. EBV versus autoimmune hepatitis, though continues to improve. At this point will await
final liver biopsy pathology. Will continue to trend LFTs for now.
Subjective
Subjective
Date of Service: April 30, 2024
Patient feeling better overall, denies any significant abdominal pain, no nausea or vomiting, tolerating diet.
Objective
Data Reviewed
Laboratory Data:
Laboratory Results
04/30/24 04:30
04/30/24 04:30
Laboratory Results
PT 13.4 Sec (11.4-14.6) 04/28/24 07:29
INR 1.02 04/28/24 07:29
Total Bilirubin 1.1 mg/dl (0.2-1.3) 04/30/24 04:30
AST 99 U/L (14-36) H 04/30/24 04:30
ALT 332 U/L (0-35) H 04/30/24 04:30
Alkaline Phosphatase 71 U/L (38-126) 04/30/24 04:30
Lipase 54 U/L (23-300) 04/24/24 07:40
Vital Signs and I&O:
Vital Signs
Temp Pulse Resp BP Pulse Ox
98.8 F 70 20 123/81 100
04/30/24 07:02 04/30/24 07:02 04/30/24 07:02 04/30/24 07:02 04/30/24 07:02
I&O
04/29/24 04/30/24 05/01/24
06:59 06:59 06:59
Intake Total 480 / 480 840 / 840
Balance 480 / 480 840 / 840
Physical Exam
Physical Exam
General: NAD
Abdomen: normal bowel sounds, soft, no tenderness, no masses or bruits, no ascites
--- NOTE | 2024-04-30 10:22 | W.PN.HOSP.TC ---
Today's Communication/Plan
-
Plan for lumbar puncture
Continue with steroid and hydroxychloroquine regimen
Continue with Flagyl regimen
Trend daily LFTs and inflammatory markers
Assessment / Plan
Assessment / Plan
#Acute lupus flare
-Home medications include belimumab weekly and hydroxychloroquine EOD
-Joint predominant, history of cerebritis(?), no known history of renal or skin involvement
-Presented with worsening joint pain, elevated ESR and CRP on admission lab
-Started on IV dexamethasone regimen, with downtrending inflammatory markers
-C3 and C4 levels were mildly low, dwzx-ivczek-nfenpqsy DNA antibody was elevated
-Patient's primary emergency department rn is recommending LP due to memory impairment
Plan
-Continue with IV dexamethasone 4 mg every 12 hours
-Continue with hydroxychloroquine regimen EOD
-Continue to trend inflammatory markers, clinical status
-Plan for LP with extensive fluid studies for suspected cerebritis
#Transaminitis
-Differentials include AIH versus hepatic involvement of lupus; positive F-actin and SHRUTHI with response to steroid
-Initial labs showed elevated AST and ALT; ALP and bilirubin levels were WNL; liver US was unremarkable
-Serology pending: antimitochondrial, soluble liver Ag, ceruloplasmin and a-1-AT
-Hep A, hep B, hep C serology was negative; EBV and CMV titers were elevated
-AST and ALT have continued to downtrend towards normal limits
Plan
-Continue to trend LFTs daily
-Avoid unnecessary hepatotoxins as possible
-Follow-up serological studies as above
-Follow-up biopsy results
#Leukocytosis
-Secondary to demargination on steroid regimen
-Has not had any fevers
#Positive EBV and CMV serology
-Serological studies showed positive IgG and IgM for EBV and CMV
-Do not suspect that this is driving her hepatic process
-Infectious disease consulted for further guidance
#Vitamin D deficient
-Expect prolonged course of high-dose steroids, ordered vitamin D levels
-Came back at 28, low levels increase risk of osteoporosis on steroid
-Continue with supplementing 50 mcg cholecalciferol daily
#Vaginal discharge
-States over the last 2 days she has had yellow discharge, associated with pruritus
-States she denies any high risk sexual encounters, is and monogamous
-Suspect bacterial vaginosis, was started on Flagyl regimen
#Subclinical hyperthyroidism
-No free T4 on labs available, added on T4 to further delineate
-No obvious signs or symptoms of thyroid dysfunction as of now
-Free T4 levels were normal
#Memory impairment
-Her emergency department rn Dr. Kathie Vegas in [place] initially recommended coming to the ER for lumbar puncture
-However she does not have any meningeal signs, lab studies here were unremarkable for causes
-Recommend following up with neurology outpatient
-Concern for cerebritis as above
DVT prophylaxis: SCDs
Diet: Regular
CODE STATUS: Full code
Anticipated Discharge: 24 - 48 hours
Subjective/Interval History
-
Date of Service: April 30, 2024
Seen and examined at the bedside. No acute events overnight. AFVSS this morning.
She seems in good spirits. States that her fatigue and mental fog are slightly improved now. Still has low back pain though right knee pain improved as well. Vaginal discharge considerably reduced since starting Flagyl.
She denies any other new acute complaints including chest pain, shortness of breath, fevers or chills, nausea, vomiting, diarrhea, abnormal bleeding or bruising, urinary issue, paresthesias or weakness.
Objective Data
-
Labs:
Laboratory Results
04/30/24
04:30
WBC 16.1 H
Hgb 9.9 L
Hct 31.1 L
Plt Count 436 H
Sodium 138
Potassium 4.6
Chloride 102
Carbon Dioxide 27
BUN 15
Creatinine 0.6
Glucose 152 H
Calcium 9.2
Total Bilirubin 1.1
AST 99 H
ALT 332 H
Alkaline Phosphatase 71
Vital Signs:
Vital Signs
Temp Pulse Resp BP Pulse Ox
98.8 F 70 20 123/81 100
04/30/24 07:02 04/30/24 07:02 04/30/24 07:02 04/30/24 07:02 04/30/24 08:00
I&O
04/29/24 04/30/24 05/01/24
06:59 06:59 06:59
Intake Total 480 / 480 840 / 840
Balance 480 / 480 840 / 840
Review of Systems
-
History Source: Patient
All other systems: Reviewed and negative
Physical Exam
-
General: Well Nourished, No Apparent Distress and Comfortable
HEENT: Normocephalic, Atraumatic, Moist Mucous Membranes and Anicteric
Respiratory: Clear to Auscultation and Non Labored Respirations; Negative Wheezes, Rales or Rhonchi
Cardiac: Regular Rhythm and S1/S2; Negative Murmur, Rub or Gallop
GI: Soft, Nontender, Nondistended and Normal Bowel Sounds
Musculoskeletal: No Clubbing, No Cyanosis, No Edema and Normal Gait & Station
Skin: Warm, Dry and Normal Turgor; Negative Rash or Jaundice
Neuro: AO x 3, Nonfocal/Grossly Intact and Central Nerve's Intact
Data Reviewed
-
Medical Tests (Nuc Med, Echo etc): Discussed with Patient
Labs: Labs Reviewed by me and Discussed with Patient
[2024-04-30] MEDS: ROXICODONE 5 MG PO ×3 (11:03→20:25)
[2024-04-30 11:20] VITALS: BP 120/75; BP_SYST 76
[2024-04-30 12:01] VITALS: BP 121/72
--- NOTE | 2024-04-30 12:09 | TRANSFER ---
Patient received back into room from lumbar puncture. Bandaid on lower back CDI. Pt complaining of pain at site, MD pope notified, orders to be provided. Plan of care ongoing.
[2024-04-30 12:14] VITALS: BP 109/67
[2024-04-30 12:49] LABS: Spinal Fluid Glucose 79 mg/dl (40-70); Spinal Fluid Protein 61 mg/dl (12-60)
[2024-04-30 12:53] LABS: CSF Color Colorless; CSF Tube # 4; CSF Tube # Clarity Clear; Red Cell Count/CSF 0 mm^3; White Blood Cell Count/CSF 3 mm^3 (0-5)
[2024-04-30 12:55] LABS: CSF Clarity Clear; CSF Color Colorless; CSF Tube # 1; Red Cell Count/CSF 21 mm^3
[2024-04-30 12:57] LABS: White Cell Count/CSF 7 mm^3 (0-5)
[2024-04-30 14:45] LABS: Spinal Fluid Granulocytes 8 %; Spinal Fluid Lymphocytes 75 %; Spinal Fluid Macrophages 17 %
[2024-04-30 15:43] VITALS: BP 105/60
[2024-04-30] MEDS: SENOKOT 17.2 MG PO (20:19)
[2024-04-30] MEDS: FLUSH (NSS) 1 FLUSH IV (20:21)
[2024-04-30 20:35] LABS: ds-DNA Ab, IgG Titer 1:40 (<1:10)
[2024-04-30 23:30] VITALS: BP 109/75
[2024-05-01] MEDS: FLAGYL 500 MG PO ×4 (00:50→23:09)
[2024-05-01 07:25] VITALS: BP 104/64
[2024-05-01] MEDS: VITAMIN D3 (cholecalciferol) 50 MCG PO (08:50)
[2024-05-01] MEDS: DECADRON 4 MG IV ×2 (08:50→19:44)
[2024-05-01] MEDS: MIRALAX 17 GRAMS PO (08:50)
[2024-05-01] MEDS: PROTONIX 40 MG PO (08:50)
[2024-05-01] MEDS: ROXICODONE 5 MG PO ×2 (08:58→19:50)
[2024-05-01 09:28] LABS: C-Reactive Protein < 5.00 mg/L (0.0-10.00)
[2024-05-01 09:32] LABS: ALT (SGPT) 296 U/L (0-35); AST (SGOT) 83 U/L (14-36); Albumin 3.4 g/dl (3.5-5.0); Alkaline Phosphatase 65 U/L (38-126); Blood Urea Nitrogen 15 mg/dl (7-17); Calcium 9.3 mg/dl (8.4-10.2); Carbon Dioxide 27 mmol/L (22-30); Chloride 101 mmol/L (98-107); Direct Bilirubin 0.2 mg/dl (0.0-0.4); Estimated Creatinine Clearance 121 ml/min; Glucose 103 mg/dl (70-99); Potassium 4.6 mmol/L (3.5-5.1); Sodium 138 mmol/L (135-145); Total Bilirubin 1.5 mg/dl (0.2-1.3); Total Protein 7.1 g/dl (6.3-8.2); eGFR > 60.00
--- NOTE | 2024-05-01 09:51 | W.PN.GI.CBS2 ---
Today's Communication / Plan
-
Please see assessment and plan for details.
Assessment / Plan
-
1. Elevated LFTs: In a marked necroinflammatory pattern, in setting of chronic immunosuppression and autoimmune disease, unclear etiology, possible viruses i.e. EBV versus autoimmune hepatitis, though continues to improve. At this point will await
final liver biopsy pathology. Will continue to trend LFTs for now.
Subjective
Subjective
Date of Service: May 01, 2024
Patient feeling better overall, denies any significant abdominal pain, nausea, vomit, fever or chills.
Objective
Data Reviewed
Laboratory Data:
Laboratory Results
05/01/24 08:30
Laboratory Results
PT 13.4 Sec (11.4-14.6) 04/28/24 07:29
INR 1.02 04/28/24 07:29
Total Bilirubin 1.5 mg/dl (0.2-1.3) H 05/01/24 08:30
AST 83 U/L (14-36) H 05/01/24 08:30
ALT 296 U/L (0-35) H 05/01/24 08:30
Alkaline Phosphatase 65 U/L (38-126) 05/01/24 08:30
Lipase 54 U/L (23-300) 04/24/24 07:40
Vital Signs and I&O:
Vital Signs
Temp Pulse Resp BP Pulse Ox
98.4 F 67 14 104/64 98
05/01/24 07:25 05/01/24 07:25 05/01/24 07:25 05/01/24 07:25 05/01/24 07:25
I&O
04/30/24 05/01/24 05/02/24
06:59 06:59 06:59
Intake Total 840 / 840 2059
Balance 840 / 840 2059
Physical Exam
Physical Exam
General: NAD
Abdomen: normal bowel sounds, soft, no tenderness, no masses or bruits, no ascites
[2024-05-01 09:55] LABS: Hematocrit 32.2 % (37.0-47.0); Hemoglobin 10.2 g/dL (12.0-16.0); Mean Corp Hgb Conc. 31.7 g/dL (33.0-37.0); Mean Corpuscular Hgb 30.2 pg (27.0-31.0); Mean Corpuscular Volume 95.3 fL (81.0-99.0); Mean Platelet Volume 9.4 fL (7.4-10.4); Platelet Count 450 10^3/uL (130-400); Red Blood Cell Count 3.38 10^6/uL (4.20-5.40); Red Cell Dist. Width 16.4 % (11.5-14.5); White Blood Cell Count 19.5 10^3/uL (4.8-10.8)
--- NOTE | 2024-05-01 10:27 | W.PN.HOSP.TC ---
Today's Communication/Plan
-
Continue with steroid and hydroxychloroquine regimen
Follow-up liver biopsy and remaining CSF studies
Continue with Flagyl for vaginal discharge
Start heating pad and continue with as needed oxycodone
Assessment / Plan
Assessment / Plan
#Acute lupus flare
-Home medications include belimumab weekly and hydroxychloroquine EOD
-Joint predominant, history of cerebritis(?), no known history of renal or skin involvement
-Presented with worsening joint pain, elevated ESR and CRP on admission lab
-Started on IV dexamethasone regimen, with downtrending inflammatory markers
-C3 and C4 levels were mildly low, klne-ickpnz-wfulayuy DNA antibody was elevated
-S/p LP on 04/30, high glucose and low protein consistent with autoimmune, other labs still pending
Plan
-Continue with IV dexamethasone 4 mg every 12 hours
-Continue with hydroxychloroquine regimen EOD
-Continue to trend inflammatory markers, clinical status
-Follow-up remainder of CSF studies from LP on 04/30
#Transaminitis
-Differentials include AIH versus hepatic involvement of lupus; positive F-actin and SHRUTHI with response to steroid
-Initial labs showed elevated AST and ALT; ALP and bilirubin levels were WNL; liver US was unremarkable
-Serology pending: antimitochondrial, soluble liver Ag, ceruloplasmin and a-1-AT
-Hep A, hep B, hep C serology was negative; EBV and CMV titers were elevated
-AST and ALT have continued to downtrend towards normal limits
Plan
-Continue to trend LFTs daily
-Avoid unnecessary hepatotoxins as possible
-Follow-up serological studies as above
-Follow-up biopsy results
#Leukocytosis
-Secondary to demargination on steroid regimen as well as reaction to liver biopsy and LP
-Has not had any fevers
-Continue to trend CBC and temperature
#Positive EBV and CMV serology
-Serological studies showed positive IgG and IgM for EBV and CMV
-Do not suspect that this is driving her hepatic process
-Infectious disease consulted for further guidance
#Vitamin D deficient
-Expect prolonged course of high-dose steroids, ordered vitamin D levels
-Came back at 28, low levels increase risk of osteoporosis on steroid
-Continue with supplementing 50 mcg cholecalciferol daily
#Vaginal discharge
-States over the last 2 days she has had yellow discharge, associated with pruritus
-States she denies any high risk sexual encounters, is and monogamous
-Suspect bacterial vaginosis, was started on Flagyl regimen
#Subclinical hyperthyroidism
-No free T4 on labs available, added on T4 to further delineate
-No obvious signs or symptoms of thyroid dysfunction as of now
-Free T4 levels were normal
#Memory impairment
-Her consumer insight analyst Dr. Kathie Vegas in [place] initially recommended coming to the ER for lumbar puncture
-However she does not have any meningeal signs, lab studies here were unremarkable for causes
-Recommend following up with neurology outpatient
-Concern for cerebritis as above
DVT prophylaxis: SCDs
Diet: Regular
CODE STATUS: Full code
Anticipated Discharge: 24 - 48 hours
Subjective/Interval History
-
Date of Service: May 01, 2024
Seen and examined at bedside. No acute events overnight. AFVSS this morning.
Mild residual lumbar pain at site of spinal puncture yesterday. Heat pad ordered. Otherwise feels fatigued today following her procedures.
She denies any new acute complaints including chest pain, shortness of breath, fevers or chills, nausea, vomiting, diarrhea, constipation, abnormal bleeding or bruising, paresthesias or weakness
Objective Data
-
Labs:
Laboratory Results
05/01/24
08:30
WBC 19.5 H
Hgb 10.2 L
Hct 32.2 L
Plt Count 450 H
Sodium 138
Potassium 4.6
Chloride 101
Carbon Dioxide 27
BUN 15
Creatinine 0.6
Glucose 103 H
Calcium 9.3
Total Bilirubin 1.5 H
AST 83 H
ALT 296 H
Alkaline Phosphatase 65
Vital Signs:
Vital Signs
Temp Pulse Resp BP Pulse Ox
98.4 F 67 14 104/64 98
05/01/24 07:25 05/01/24 07:25 05/01/24 07:25 05/01/24 07:25 05/01/24 07:25
I&O
04/30/24 05/01/24 05/02/24
06:59 06:59 06:59
Intake Total 840 / 840 2059
Balance 840 / 840 2059
Review of Systems
-
History Source: Patient
All other systems: Reviewed and negative
Physical Exam
-
General: Well Nourished, No Apparent Distress and Comfortable
HEENT: Normocephalic, Atraumatic and Moist Mucous Membranes
Respiratory: Clear to Auscultation and Non Labored Respirations; Negative Wheezes, Rales or Rhonchi
Cardiac: Regular Rhythm and S1/S2; Negative Murmur, Rub or Gallop
GI: Soft, Nontender, Nondistended and Normal Bowel Sounds
Musculoskeletal: No Clubbing, No Cyanosis, No Edema and Other (No significant tenderness to palpation of the joints (B/L knees, lumbar spine))
Skin: Warm, Dry and Normal Turgor; Negative Rash or Jaundice
Neuro: AO x 3, Nonfocal/Grossly Intact and Central Nerve's Intact
Psych: Calm
Data Reviewed
-
Labs: Labs Reviewed by me and Discussed with Patient
[2024-05-01 11:19] LABS: % Basophils 0.5 % (0-2); % Immature Granulocytes 8.7 % (0-0.5); % Lymphocytes 7.9 % (20.5-51.1); % Monocytes 9.3 % (1.7-9.3); % Neutrophils 73.6 % (42.2-75.2); Absolute Basophils 0.1 10^3/uL (0-0.2); Absolute Immature Granulocytes 1.7 10^3/uL (0-0.05); Absolute Lymphocytes 1.5 10^3/uL (1.2-3.4); Absolute Monocytes 1.8 10^3/uL (0.1-0.6); Absolute Neutrophils 14.4 10^3/uL (1.4-6.5); Nucleated Red Blood Cells % 0.4 %
[2024-05-01 11:43] LABS: Erythrocyte Sed Rate 20 mm/hour (0-20)
[2024-05-01 15:05] VITALS: BP 123/71
[2024-05-01 15:18] VITALS: BP 123/71
[2024-05-01 15:23] LABS: ANA Pattern Centromere; ANA Pattern 2 Speckled; ANA Titer >1:2560; Cytoplasmic Pattern AMA
--- NOTE | 2024-05-01 15:38 | CM ---
Patient seen bedside with family, reports no needs to CM at this time. CM will continue to follow for all discharge planning needs.
Plan; home no needs when stable.
[2024-05-01] MEDS: SENOKOT 17.2 MG PO (23:09)
[2024-05-01 23:25] VITALS: BP 120/78
[2024-05-02 07:20] VITALS: BP 109/68
[2024-05-02 08:07] LABS: Erythrocyte Sed Rate 18 mm/hour (0-20)
[2024-05-02 08:46] LABS: ALT (SGPT) 261 U/L (0-35); AST (SGOT) 79 U/L (14-36); Albumin 3.4 g/dl (3.5-5.0); Alkaline Phosphatase 65 U/L (38-126); Blood Urea Nitrogen 16 mg/dl (7-17); Calcium 9.1 mg/dl (8.4-10.2); Carbon Dioxide 28 mmol/L (22-30); Chloride 100 mmol/L (98-107); Direct Bilirubin 0.2 mg/dl (0.0-0.4); Estimated Creatinine Clearance 121 ml/min; Glucose 105 mg/dl (70-99); Potassium 4.6 mmol/L (3.5-5.1); Sodium 137 mmol/L (135-145); Total Bilirubin 1.3 mg/dl (0.2-1.3); eGFR > 60.00
[2024-05-02 08:47] LABS: C-Reactive Protein < 5.00 mg/L (0.0-10.00)
--- NOTE | 2024-05-02 09:03 | W.PN.HOSP.TC ---
Today's Communication/Plan
-
Discussed case with neurology, patient needs MRI brain, need to rule out PML, neurology recommended holding patient's discharge until tomorrow
Switch to PO steroids tomorrow
I discussed case over the phone with patient's outpatient spanish professor today. I also discussed patient's case with [employer] On-Call [employer] Cutter Dr. Haris Bravo.
Assessment / Plan
Assessment / Plan
Physical Exam
General: Well Nourished, No Apparent Distress and Comfortable
HEENT: Normocephalic, Atraumatic and Moist Mucous Membranes
Respiratory: Clear to Auscultation and Non Labored Respirations; Negative Wheezes, Rales or Rhonchi
Cardiac: Regular Rhythm and S1/S2; Negative Murmur, Rub or Gallop
GI: Soft, Nontender, Nondistended and Normal Bowel Sounds
Musculoskeletal: No Cyanosis, No Edema and Other (No significant tenderness to palpation of the joints (B/L knees, lumbar spine))
Skin: Warm, Dry
Neuro: AO x 3, Nonfocal/Grossly Intact and Central Nerves Grossly Intact
Psych: Calm
Assessment/Plan
#Acute lupus flare, presented as mental fog/fatigue/back and knee pain
-Home medications include belimumab weekly and hydroxychloroquine EOD
-Joint predominant, history of cerebritis(?), no known history of renal or skin involvement
-Presented with worsening joint pain, elevated ESR and CRP on admission labs
-Started on IV dexamethasone regimen, and inflammatory markers (i.e. ESR and CRP) -- which were high on admission -- have normalized
-C3 and C4 levels were mildly low, rdiw-wwevue-yxrnnnky DNA antibody was elevated just over the upper limit of normal
-S/p LP on 04/30, high glucose and low protein consistent with autoimmune
Plan
-Continue with IV dexamethasone 4 mg every 12 hours for 05/02/24, then on 05/02/24, switch to Prednisone 40 mg daily as per recommendation of patient's outpatient spanish professor
-Continue with hydroxychloroquine regimen EOD
-Continue to trend inflammatory markers, clinical status
-LP was performed on 04/30/24: consulted neurology, appreciate evaluation and recommendations
-On 05/02/24, I reviewed patient's case with Dr. Haris Bravo (on-call spanish professor) who reviewed patient's chart and recommended Prednisone 50 mg daily (however he was okay with patient getting Prednisone 40 mg daily as per Dr. Kathie Barton's
recommendation when I spoke with her over the phone (as below)
-On 05/02/24, I spoke with patient's spanish professor Dr. Kathie Barton DO, and I went over patient's lab results with her, and she recommended that patient be discharged with/switched to Prednisone 40 mg daily, with outpatient follow-up this week.
Dr. Kathie Barton DO also requested patient's records be faxed from this hospitalization, and I requested patient's nurse and unit secretary to have the records sent to Dr. Kathie Barton's office at the earliest possible.
#Transaminitis from possible lupus involvement of liver versus overlap AIH with SLE versus hepatotoxicity (less likely as hydroxychloroquine category C and belimumab category E per Liver Tox) versus underlying viral hepatitis versus other metabolic
and/or hereditary cause of liver disease
-Initial labs showed elevated AST and ALT; ALP and bilirubin levels were WNL; liver US was unremarkable
-Serology: antimitochondrial ab 7.9, soluble liver Ag, ceruloplasmin 30 and a-1-AT
-Hep A, hep B, hep C serology was negative; EBV and CMV titers were elevated
-AST and ALT have continued to downtrend towards normal limits
-Viral hepatitis (-) including: Total HAV (-), HBsAg (-), HBsAb (-), HBcAb (-) and HCV (-) ;
-CMV IgM elevated, EBV IgM elevated. HSV 1 and 2 antibody negative, PCR resulted as 'not detected'
-Serologic w/u: Elevated total IgG levels (3182) and (+) SHRUTHI, (-) SLA, (-) ASMA (-) anti-LKM, ; (-) ceruloplasmin and (-) AMA ab, (-) Celiac serologies
-Will need to follow-up liver biopsy results
-Follow-up with Dr. Kashif Yanez who is a dedicated Halftone Operator at [facility] (Dr. Gennaro Monique inpatient roll forming machine operator at [facility] reached out to Dr. Kashif Yanez for an appointment sooner rather than later) but should also
follow-up with Dr. Gennaro Monique
Plan
-Continue to trend LFTs outpatient with repeat CMP and CBC with differential outpatient
-Avoid unnecessary hepatotoxins as possible
-Follow-up biopsy results
#Leukocytosis
-Secondary to demargination on steroid regimen as well as reaction to liver biopsy and LP
-Has not had any fevers
-Continue to trend CBC and temperature
#Positive EBV
#Recent Primary EBV infection
-Serological studies showed positive IgG and IgM for EBV and CMV
-Infectious disease consulted for further guidance, appreciate their evaluation and recommendations
-As per Infectious Disease: CMV IgM+ likely false positive (cross-reactivity with EBV) vs low level reactivation from acute medical condition, which is not significant.
#Vitamin D deficient
-Expect prolonged course of high-dose steroids, vitamin D levels were previously ordered
-Came back at 28, low levels increase risk of osteoporosis on steroid
-Continue with supplementing 50 mcg cholecalciferol daily
#Vaginal discharge
-States over the last 2 days she has had yellow discharge, associated with pruritus
-States she denies any high risk sexual encounters, is and monogamous
-Suspect bacterial vaginosis, was started on Flagyl regimen --> continue through 05/08/24 for 7 days
#Subclinical hyperthyroidism
-No obvious signs or symptoms of thyroid dysfunction as of now
-TSH low at 0.19
-Free T4 levels were normal
#Memory impairment -- improved/resolved as per patient
-Her spanish professor Dr. Kathie Barton in [facility] initially recommended coming to the ER for lumbar puncture
-However patient was noted not to have any meningeal signs, lab studies here were unremarkable for causes
-Concern for cerebritis as above
DVT prophylaxis: SCDs. Lovenox.
Diet: Regular
CODE STATUS: Full code
Anticipated Discharge: Within 24 hours
Subjective/Interval History
-
Date of Service: May 02, 2024
Patient was seen and examined. She reported that her symptoms have all improved significantly compared to when she came in. She would like to go home as soon as possible.
Objective Data
-
Labs:
Laboratory Results
05/02/24 05/02/24
07:25 07:26
WBC Pending
Hgb Pending
Hct Pending
Plt Count Pending
Sodium 137
Potassium 4.6
Chloride 100
Carbon Dioxide 28
BUN 16
Creatinine 0.6
Glucose 105 H
Calcium 9.1
Total Bilirubin 1.3
AST 79 H
ALT 261 H
Alkaline Phosphatase 65
Vital Signs:
Vital Signs
Temp Pulse Resp BP Pulse Ox
98.1 F 68 16 109/68 100
05/02/24 07:20 05/02/24 07:20 05/02/24 07:20 05/02/24 07:20 05/02/24 07:20
I&O
05/01/24 05/02/24 05/03/24
06:59 06:59 06:59
Intake Total 2059 2880 / 2880
Balance 2059 2880 / 2880
--- NOTE | 2024-05-02 09:31 | W.PN.GI.CBS2 ---
Today's Communication / Plan
-
LFTs improving, pending liver biopsy. Discussed with patient's Barrel Marker today. See rest of plan as outlined below.
Assessment / Plan
-
Ms Wilde is a 33 y.o female with past medical history of SLE who presented with a lupus flare and found to have incidental elevated transaminases.
#Elevated LFTs
#Moderate Hepatocellular-induced Liver Injury
#Hx of SLE (on Hydroxychloroquine and Belimumab)
Impression: Found to have AST/ALT in 400s with otherwise normal cholestatic labs and intact synthetic function. Concern for underlying SLE flare given symptomatology on admission. Etiology of her hepatocellular induced liver injury concerning for
possible lupus involvement of her liver (ie lupus hepatitis) versus overlap AIH with SLE versus hepatotoxicity (less likely as hydroxychloroquine category C and belimumab category E per Liver Tox) versus underlying viral hepatitis versus other
metabolic and/or hereditary cause of liver disease. No other concern for ischemia as without hypotension or other potential concern for DILI.
Liver US 04/24/2024 without steatosis, fibrosis, hepatomegaly and was grossly unremarkable.
Work-up thus far as of 04/28/2024:
Viral hepatitis (-) including: Total HAV (-), HBsAg (-), HBsAb (-), HBcAb (-) and HCV (-) ;
CMV IgM elevated, EBV IgM elevated. HSV 1 and 2 antibody negative, PCR pending
Serologic w/u: Elevated total IgG levels (3182) and (+) SHRUTHI, (-) SLA, (-) ASMA (-) anti-LKM, ; (-) ceruloplasmin and (-) AMA ab, (-) Celiac serologies
Transaminases now improving AST (peaked 389 on 04/25) -> 108 and ALT (peaked 650 on 04/26) -> 384 along with normal ALP, T Bili and intact synthetic function with INR 1s
LFTs continuing to improve, now AST 79 and ALT 261 on 05/02
S/p liver bx on 04/28 (path pending) ; EBV serologies concerning for recent primary EBV infection
Recommendations:
- Continue to trend LFTs and INR q daily while inpatient
- If patient is to be discharged today or tomorrow, recommend outpatient LFTs and INR in 1-2 weeks
- Unclear if patient's elevated transaminases are due to resolving EBV infection given serologies versus autoimmune liver disease (AIH) as being treated with IV steroids (ie Dexamethasone) for SLE flare versus SLE-induced hepatitis (very rare)
- Await rest of infectious w/u as already sent along with pathology from liver biopsy from 04/28
- Patient further expressed that she would like to follow-up at [facility] ([facility]) with GI there as she is well known to the system as she follows-up with her Barrel Marker there. Recommended she see my colleague, Dr. Rowland
Beau, who is a Lime Kiln Worker at [facility]. Will reach out to him today to help facilitate a sooner f/u patient appointment
- Will f/u liver biopsy results if patient is to be discharged given her ongoing improving transaminases with persevered synthetic function
- If patient decides to f/u here for her GI care, would be happy to set her up for a f/u as well. Have provided her my number as well
- Discussed importance of close follow-up care with a Machine Shop Repair Technician wherever she decides
- Will update patient's Barrel Marker as well for further continuity
- Continue to avoid all hepatotoxic medications along with alcohol
- Rest of care per primary team
Discussed with primary, internal medicine team this AM.
GI team will continue to follow if patient is to remain inpatient.
Subjective
Subjective
Date of Service: May 02, 2024
- No acute events overnight, remains on IV Dexamethasone 4 mg q 12 hrs per primary team
- Liver biopsy results / pathology still pending, transaminases continue to down-trend
Feeling well, resting comfortably in bed. Reports feeling much better with less fatigue and without any further headaches or nausea. Continues to deny any RUQ abdominal pain. Hoping to go home today, wants to follow-up at [facility] for her ongoing GI
care as she already follows up at [facility] for Rheumatology.
Objective
Data Reviewed
Laboratory Data:
Laboratory Results
05/02/24 07:25
Laboratory Results
PT 13.4 Sec (11.4-14.6) 04/28/24 07:29
INR 1.02 04/28/24 07:29
Total Bilirubin 1.3 mg/dl (0.2-1.3) 05/02/24 07:25
AST 79 U/L (14-36) H 05/02/24 07:25
ALT 261 U/L (0-35) H 05/02/24 07:25
Alkaline Phosphatase 65 U/L (38-126) 05/02/24 07:25
Lipase 54 U/L (23-300) 04/24/24 07:40
Vital Signs and I&O:
Vital Signs
Temp Pulse Resp BP Pulse Ox
98.1 F 68 16 109/68 100
05/02/24 07:20 05/02/24 07:20 05/02/24 07:20 05/02/24 07:20 05/02/24 07:20
I&O
05/01/24 05/02/24 05/03/24
06:59 06:59 06:59
Intake Total 2059 2880 / 2880
Balance 2059 2880 / 2880
Physical Exam
Physical Exam
HEENT: Anicteric and Moist mucous membranes
Cardiology: Normal Sinus Rhythm
Pulmonary: Clear
GI: Soft, Flat and Non Tender
Extremities: No Edema
Neuro: Non Focal
[2024-05-02 09:34] LABS: Absolute Neutrophils -Man Diff 17.6 10^3/uL (1.4-6.5); Band Neutrophils 0 % (0-3); Hematocrit 32.2 % (37.0-47.0); Hemoglobin 10.3 g/dL (12.0-16.0); Lymphocytes 12 % (20-51); Mean Corpuscular Hgb 31.1 pg (27.0-31.0); Mean Corpuscular Volume 97.3 fL (81.0-99.0); Mean Platelet Volume 9.4 fL (7.4-10.4); Metamyelocytes 3 % (-); Monocytes 10 % (2-9); Myelocytes 4 % (-); Platelet Count 450 10^3/uL (130-400); Platelets Checked Yes; Red Blood Cell Count 3.31 10^6/uL (4.20-5.40); Red Cell Dist. Width 16.6 % (11.5-14.5); Segmented Neutrophils 71 % (42-75); White Blood Cell Count 24.8 10^3/uL (4.8-10.8)
[2024-05-02 09:35] LABS: Anisocytosis Slight; Normal RBC Morphology No; Total Cells Counted 100
[2024-05-02] MEDS: PROTONIX 40 MG PO (10:22)
[2024-05-02] MEDS: MIRALAX 17 GRAMS PO (10:22)
[2024-05-02] MEDS: ROXICODONE 5 MG PO ×2 (10:27→17:47)
[2024-05-02] MEDS: DECADRON 4 MG IV ×2 (10:27→20:25)
[2024-05-02] MEDS: PLAQUENIL 200 MG PO (10:28)
[2024-05-02] MEDS: FLAGYL 500 MG PO ×2 (10:28→17:36)
[2024-05-02] MEDS: VITAMIN D3 (cholecalciferol) 50 MCG PO (10:28)
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
--- NOTE | 2024-05-02 15:02 | EEG.RPT ---
Electroencephalogram Report
Recording
Date of EE05/02/24
Type of EEG: Routine
Length of EEG recordin minutes
Done with Video Recording: Yes
Patient Status: Inpatient
Recording Conditions: Awake and Drowsy
Hyperventilation Performed: No
Photic Stimulation Performed: Yes
Report
GREATER THAN 1 HOUR EEG REPORT
EEG INTERPRETATION:
Unremarkable EEG for age
CLINICAL CORRELATION:
A normal EEG does not rule out a diagnosis of epilepsy. If clinical suspicion for seizure persists, a prolonged recording may be warranted.
Clinical correlation is advised.
METHODS:
A 21 channel digitized electroencephalogram (EEG) was performed at bedside. The 10/20 international system of electrode placement was used with ECG and lateral/vertical eye movements recorded. Persyst quantitative EEG analysis was performed.
ELECTROENCEPHALOGRAPHER IMPRESSION(S):
Quality of study
Good
Background
Unremarkable, well maintained, medium amplitude alpha-frequency and unremarkable anterior-posterior voltage gradient
With eye opening the background activity changed to a low voltage mixture of frequencies.
Sleep
Drowsiness present
Photic Stimulation
Did not activate the record
ECG
Normal sinus rhythm
--- NOTE | 2024-05-02 15:08 | CM ---
Home with [facility].
Plan; Home with [facility].
--- NOTE | 2024-05-02 15:09 | CM ---
Home no needs when stable.
Plan; Home at discharge.
[2024-05-02 15:47] VITALS: BP 131/70
[2024-05-02 18:38] LABS: Amphetamines Negative (Negative); Barbiturates Negative (Negative); Benzodiazepines Negative (Negative); Buprenorphine Negative (Negative); Cocaine Negative (Negative); Marijuana Negative (Negative); Methadone Negative (Negative); Methamphetamines Negative (Negative); Opiates Negative (Negative); Phencyclidine Negative (Negative); Tricyclic Antidepressants Negative (Negative)
[2024-05-02 20:00] LABS: Fentanyl, Urine Negative (Negative)
[2024-05-02] MEDS: SENOKOT 17.2 MG PO (20:25)
[2024-05-02 21:18] LABS: Creatine Phosphokinase 25 U/L (30-135); Magnesium 2.2 mg/dl (1.6-2.3)
[2024-05-02 21:41] LABS: Ammonia < 9 umol/L (9-30)
[2024-05-02 23:14] VITALS: BP 133/74
[2024-05-02 23:37] LABS: Angiotensin-1- Converting, CSF 1.4 U/L (0.0-2.5)
[2024-05-03 00:15] LABS: C.neoformans Antigen Negative (Negative)
[2024-05-03 03:27] LABS: CSF VDRL (T. pallidum) Non Reactive (Non Reactive)
[2024-05-03] MEDS: FLAGYL 500 MG PO (05:42)
[2024-05-03 07:15] VITALS: BP 126/84
[2024-05-03] MEDS: DELTASONE 40 MG PO (08:06)
[2024-05-03] MEDS: MIRALAX 17 GRAMS PO (08:06)
[2024-05-03] MEDS: VITAMIN D3 (cholecalciferol) 50 MCG PO (08:06)
[2024-05-03] MEDS: PROTONIX 40 MG PO (08:06)
--- NOTE | 2024-05-03 08:25 | W.PN.GI.CBS2 ---
Today's Communication / Plan
-
Transaminases continue to improve, still pending liver biopsy. Needs close outpatient f/u with her Merchandise Marker and GI. See rest of recommendations as outlined below.
Assessment / Plan
-
Ms Wilde is a 33 y.o female with past medical history of SLE who presented with a lupus flare and found to have incidental elevated transaminases.
#Elevated Transaminases
#Moderate Hepatocellular-induced Liver Injury
#Recent primary EBV infection (Based on EBV serologies)
#Hx of SLE (on Hydroxychloroquine and Belimumab) c/f Flare
Impression: Found to have AST/ALT in 400s with otherwise normal cholestatic labs and intact synthetic function. Concern for underlying SLE flare given symptomatology on admission. Etiology of her hepatocellular induced liver injury concerning for
possible lupus involvement of her liver (ie lupus hepatitis) versus overlap AIH with SLE versus hepatotoxicity (less likely as hydroxychloroquine category C and belimumab category E per Liver Tox) versus underlying viral hepatitis versus other
metabolic and/or hereditary cause of liver disease. No other concern for ischemia as without hypotension or other potential concern for DILI.
Liver US 04/24/2024 without steatosis, fibrosis, hepatomegaly and was grossly unremarkable.
Work-up thus far as of 04/28/2024:
Viral hepatitis (-) including: Total HAV (-), HBsAg (-), HBsAb (-), HBcAb (-) and HCV (-) ;
CMV IgM elevated, EBV IgM elevated. HSV 1 and 2 antibody negative, PCR pending
Serologic w/u: Elevated total IgG levels (3182) and (+) SHRUTHI, (-) SLA, (-) ASMA (-) anti-LKM, ; (-) ceruloplasmin and (-) AMA ab, (-) Celiac serologies
EBV VCA IgG+, IgM+, EA Ab +, EBNA negative -> suggestive of recent primary EBV. CMV IgM+ likely false positive (cross-reactivity with EBV) vs low level reactivation from acute medical condition (not felt to be significant per ID)
Transaminases now improving AST (peaked 389 on 04/25) -> 108 and ALT (peaked 650 on 04/26) -> 384 along with normal ALP, T Bili and intact synthetic function with INR 1s; LFTs continuing to improve, now AST 79 and ALT 261 on 05/02
S/p liver bx on 04/28 (path pending) ; EBV serologies concerning for recent primary EBV infection
Recommendations:
- Continue to trend LFTs and INR q daily while inpatient
- Needs repeat LFTs and INR in 1-2 weeks as an outpatient. This will be obtained by her Merchandise Marker who I spoke with yesterday on 05/02
- Will follow-up rest of w/u along with pathology from liver biopsy from 04/28 (still pending)
- Patient further expressed that she would like to follow-up at [facility] ([facility]) with GI there as she is well known to the system as she follows-up with her Merchandise Marker there. Recommended she see my colleague, Dr. Rowland
Beau, who is a Tack Driller at [facility]. Reached out to Dr. Yanez on 05/02 for further coordination of care and outpatient follow-up
- Will f/u liver biopsy results if patient is to be discharged given her ongoing improving transaminases with persevered synthetic function
- If patient decides to f/u here for her GI care, would be happy to set her up for a f/u as well. Have provided her my number as well again this AM. Discussed importance of close follow-up care with a [employer] wherever she decides
- Neurology consulted, appreciate recs regarding further w/u and Brain MRI
- Continue to avoid all hepatotoxic medications along with alcohol
- Rest of care per primary team
Discussed with primary internal medicine team this AM.
Subjective
Subjective
Date of Service: May 03, 2024
- Neurology consulted yesterday afternoon, recommended Brain MRI given c/f lupus cerebritis
- Otherwise, no acute events overnight
Patient frustrated this AM, wants to go home. Awaiting Brain MRI which has been ordered. She has very close follow-up with her Merchandise Marker this Thursday who is well known to her. Repeat labs along with liver biopsy pending.
Personally discussed with patient's Merchandise Marker yesterday afternoon given improving LFTs and suspicion for resolving primary EBV infection rather than AIH.
Objective
Data Reviewed
Laboratory Data:
Laboratory Results
PT 13.4 Sec (11.4-14.6) 04/28/24 07:29
INR 1.02 04/28/24 07:29
Magnesium Cancelled 05/02/24 13:57
Total Bilirubin 1.3 mg/dl (0.2-1.3) 05/02/24 07:25
AST 79 U/L (14-36) H 05/02/24 07:25
ALT 261 U/L (0-35) H 05/02/24 07:25
Alkaline Phosphatase 65 U/L (38-126) 05/02/24 07:25
Lipase 54 U/L (23-300) 04/24/24 07:40
Vital Signs and I&O:
Vital Signs
Temp Pulse Resp BP Pulse Ox
98.1 F 98 16 126/84 100
05/03/24 07:15 05/03/24 07:15 05/03/24 07:15 05/03/24 07:15 05/03/24 07:15
I&O
05/02/24 05/03/24 05/04/24
06:59 06:59 06:59
Intake Total 2880 / 2880 2880 / 2880
Balance 2880 / 2880 2880 / 2880
Physical Exam
Physical Exam
HEENT: Anicteric and Moist mucous membranes
Cardiology: Normal Sinus Rhythm
Pulmonary: Other (Normal WOB on room air)
GI: Soft, Non Distended, Flat and Non Tender
Extremities: No Edema
Neuro: Non Focal
[2024-05-03 09:21] LABS: ALT (SGPT) 233 U/L (0-35); AST (SGOT) 69 U/L (14-36); Albumin 3.3 g/dl (3.5-5.0); Alkaline Phosphatase 73 U/L (38-126); Blood Urea Nitrogen 17 mg/dl (7-17); Calcium 8.8 mg/dl (8.4-10.2); Carbon Dioxide 26 mmol/L (22-30); Chloride 101 mmol/L (98-107); Estimated Creatinine Clearance 121 ml/min; Glucose 126 mg/dl (70-99); Potassium 4.1 mmol/L (3.5-5.1); Sodium 139 mmol/L (135-145); Total Bilirubin 1.2 mg/dl (0.2-1.3); eGFR > 60.00
[2024-05-03 09:31] LABS: Hematocrit 33.2 % (37.0-47.0); Hemoglobin 10.5 g/dL (12.0-16.0); Mean Corp Hgb Conc. 31.6 g/dL (33.0-37.0); Mean Corpuscular Volume 97.9 fL (81.0-99.0); Mean Platelet Volume 9.4 fL (7.4-10.4); Platelet Count 473 10^3/uL (130-400); Red Blood Cell Count 3.39 10^6/uL (4.20-5.40); Red Cell Dist. Width 17.1 % (11.5-14.5); White Blood Cell Count 30.3 10^3/uL (4.8-10.8)
[2024-05-03 10:38] LABS: Absolute Neutrophils -Man Diff 22.7 10^3/uL (1.4-6.5); Band Neutrophils 7 % (0-3); Segmented Neutrophils 68 % (42-75)
[2024-05-03 10:39] LABS: Lymphocytes 7 % (20-51); Monocytes 8 % (2-9)
[2024-05-03 10:40] LABS: Metamyelocytes 6 % (-); Myelocytes 4 % (-); Nucleated Red Blood Cells 3 (-); Platelets Checked YES
[2024-05-03 10:41] LABS: Normal RBC Morphology No
[2024-05-03 10:43] LABS: Anisocytosis Slight; Macrocytosis Slight
[2024-05-03 10:57] LABS: Hypochromasia Slight; Target Cells FEW
[2024-05-03 11:01] LABS: Total Cells Counted 100
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
[2024-05-03 12:29] VITALS: BP 128/76
--- NOTE | 2024-05-03 12:31 | W.PN.HOSP.TC ---
Addendum entered and electronically signed by Kevin Blanco MD 05/03/24 13:09:
Patient will need to check with her line assembly utility worker regarding when she can resume Benlysta. She will also need to get further guidance regarding prednisone regimen going forward and obtain any refills from her line assembly utility worker.
Original Note:
Today's Communication/Plan
-
Discharge today
Assessment / Plan
Assessment / Plan
Physical Exam
General Not in acute distress
HEENT: Normocephalic, Atraumatic
Respiratory: Clear to Auscultation Bilaterally
Cardiac: Regular Rhythm and S1/S2
GI: Soft, Nontender, Nondistended and Normal Bowel Sounds
Musculoskeletal: No Cyanosis, No Edema
Skin: Warm, Dry
Neuro: AO x 3, Nonfocal/Grossly Intact and Cranial Nerves Grossly Intact
Psych: Calm
Assessment/Plan
#Acute lupus flare, presented as mental fog/fatigue/back and knee pain
-Home medications include belimumab weekly and hydroxychloroquine EOD
-Joint predominant, history of cerebritis(?), no known history of renal or skin involvement
-Presented with worsening joint pain, elevated ESR and CRP on admission labs
-Started on IV dexamethasone regimen, and inflammatory markers (i.e. ESR and CRP) -- which were high on admission -- have normalized
-C3 and C4 levels were mildly low, msoe-uwtdyr-ioawooit DNA antibody was elevated just over the upper limit of normal
-S/p LP on 04/30, high glucose and low protein consistent with autoimmune
Plan
-Continue with IV dexamethasone 4 mg every 12 hours for 05/02/24, then on 05/02/24, switch to Prednisone 40 mg daily as per recommendation of patient's outpatient line assembly utility worker
-Continue with hydroxychloroquine regimen EOD
-Continue to trend inflammatory markers, clinical status
-LP was performed on 04/30/24: consulted neurology, appreciate evaluation and recommendations
-Brain MRI is unremarkable. EEG unremarkable.
-Outpatient neurology follow-up in 1-2 weeks
-On 05/02/24, I reviewed patient's case with Dr. Haris Bravo (on-call line assembly utility worker) who reviewed patient's chart and recommended Prednisone 50 mg daily (however he was okay with patient getting Prednisone 40 mg daily as per Dr. Kathie Barton's
recommendation when I spoke with her over the phone (as below)
-On 05/02/24, I spoke with patient's line assembly utility worker Dr. Kathie Barton DO, and I went over patient's lab results with her, and she recommended that patient be discharged with/switched to Prednisone 40 mg daily, with outpatient follow-up this week.
Dr. Kathie Barton DO also requested patient's records be faxed from this hospitalization, and I requested patient's nurse and manager community relations to have the records sent to Dr. Kathie Barton's office at the earliest possible this week.
#Transaminitis from possible lupus involvement of liver versus overlap AIH with SLE versus hepatotoxicity (less likely as hydroxychloroquine category C and belimumab category E per Liver Tox) versus underlying viral hepatitis versus other metabolic
and/or hereditary cause of liver disease
-Initial labs showed elevated AST and ALT; ALP and bilirubin levels were WNL; liver US was unremarkable
-Serology: antimitochondrial ab 7.9, soluble liver Ag, ceruloplasmin 30 and a-1-AT
-Hep A, hep B, hep C serology was negative; EBV and CMV titers were elevated
-AST and ALT have continued to downtrend towards normal limits
-Viral hepatitis (-) including: Total HAV (-), HBsAg (-), HBsAb (-), HBcAb (-) and HCV (-) ;
-CMV IgM elevated, EBV antibodies positive. HSV 1 and 2 antibody negative, PCR resulted as 'not detected'
-Serologic w/u: Elevated total IgG levels (3182) and (+) SHRUTHI, (-) SLA, (-) ASMA (-) anti-LKM (-) ceruloplasmin and (-) AMA ab, (-) Celiac serologies
-Will need to follow-up liver biopsy results
-Follow-up with Dr. Kashif Yanez who is a dedicated Business Manager [employer] at [facility] (Dr. Gennaro Monique inpatient audio visual project manager at [facility] reached out to Dr. Kashif Yanez for an appointment sooner rather than later) but should also
follow-up with Dr. Gennaro Monique
Plan
-Needs repeat LFTs and INR in 1-2 weeks as an outpatient -- this will be obtained by her Electronic Engineering Technician
-Avoid unnecessary hepatotoxins as possible
-Follow-up biopsy results
-Close follow-up with GI outpatient
-Avoid all hepatotoxic medications and avoid alcohol
#Leukocytosis Likely Secondary to Steroids
-Secondary to demargination on steroid regimen as well as reaction to liver biopsy and LP
-Has not had any fevers or signs/symptoms of an infection
-Continue to trend CBC and temperature
#Positive EBV
#Recent Primary EBV infection
-Serological studies showed positive IgG and IgM for EBV and CMV (but please see below regarding the CMV result)
-Infectious disease consulted for further guidance, appreciate their evaluation and recommendations
-As per Infectious Disease: CMV IgM+ likely false positive (cross-reactivity with EBV) vs low level reactivation from acute medical condition, which is not significant.
#Vitamin D Insufficient
-Expect prolonged course of high-dose steroids, vitamin D levels were previously ordered
-Came back at 28.7, low levels increase risk of osteoporosis on steroid
-Continue with supplementing 50 mcg cholecalciferol daily
-Recheck Vitamin D outpatient and stop Vitamin D if appropriate
#Vaginal discharge
-States over the last 2 days she has had yellow discharge, associated with pruritus
-States she denies any high risk sexual encounters, is and monogamous
-Suspect bacterial vaginosis, was started on Flagyl regimen --> continue through 05/08/24 for 7 days
#Subclinical hyperthyroidism
-No obvious signs or symptoms of thyroid dysfunction as of now
-TSH low at 0.19
-Free T4 levels were normal
#Memory impairment -- improved/resolved as per patient
-Her line assembly utility worker Dr. Kathie Barton in [place] initially recommended coming to the ER for lumbar puncture
-However patient was noted not to have any meningeal signs, lab studies here were unremarkable for causes
-Concern for cerebritis as above
DVT prophylaxis: SCDs. Lovenox.
Diet: Regular
CODE STATUS: Full code
More than 30 minutes spent in discharge including
Final examination of the patient
Summarizing hospital stay
Instructions for continuing care to all relevant caregivers
Preparation of discharge records, prescriptions, and referral forms
Total time spent (in minutes): 42
Anticipated Discharge: Today
Subjective/Interval History
-
Date of Service: May 03, 2024
Patient was seen and examined. She denied any new symptoms or complaints. She would really like to go home today.
Objective Data
-
Labs:
Laboratory Results
05/03/24
08:21
WBC 30.3 H
Hgb 10.5 L
Hct 33.2 L
Plt Count 473 H
Sodium 139
Potassium 4.1
Chloride 101
Carbon Dioxide 26
BUN 17
Creatinine 0.6
Glucose 126 H
Calcium 8.8
Total Bilirubin 1.2
AST 69 H
ALT 233 H
Alkaline Phosphatase 73
Vital Signs:
Vital Signs
Temp Pulse Resp BP Pulse Ox
97.9 F 81 17 128/76 100
05/03/24 12:29 05/03/24 12:29 05/03/24 12:29 05/03/24 12:29 05/03/24 12:29
I&O
05/02/24 05/03/24 05/04/24
06:59 06:59 06:59
Intake Total 2880 / 2880 2880 / 2880
Balance 2880 / 2880 2880 / 2880
--- NOTE | 2024-05-03 12:48 | PTCARENOTE ---
Pt left without discharge paperwork. I told the pt that I would text the to have him finish up DC paperwork, but the pt said that they could not wait ad would see DC paperwork on her chart at home.
I texted Dr. Harden ad he was fine
--- NOTE | 2024-05-03 13:00 | PTCARENOTE ---
pt as left before I could bring her the DC papers.
Pt had a brain MRI this morning ad was cleared per Neuro & Hospitalist. Pt was waiting DC papers and her ride came to pick her up, and ride came and only could stay for 30 minutes. I texted the Provider that she needed her papers to leave and pt
could not wait until the provider could finish.
[2024-05-03 13:03] LABS: Lyme Disease DNA by PCR Not Detected; Lyme Source CSF
--- NOTE | 2024-05-03 13:05 | W.DCSUMMARY ---
Discharge Summary
Discharge Data
Date of Admission: 04/24/24
Date of Discharge: 05/03/24
Total time spent discharging patient (in min): 42
-
Pending Results: Yes
Additional Pending Results:
Liver biopsy results
Pending lab results
Pending Microbiology and culture results
Hospital Course
33-year-old female with a past medical history of SLE, neuropsychiatric lupus, immunosuppressed state, presented with a 1 to 2 week history of worsening joint pain, lower back pain, swelling, headache, and fatigue. She also reported memory loss and
nausea of a few months duration. It was noted on admission that patient's outpatient vessel builder recommended patient come into the emergency room to have a lumbar puncture performed and to rule out cerebritis. Patient was admitted with a lupus
flare and started on steroids. Patient's hydroxychloroquine was continued. Inflammatory markers were noted to be elevated.
Patient's hepatic transaminases were noted to be elevated. Gastroenterology was consulted and the cause of her elevated hepatic transaminases was thought to be from: possible lupus involvement of her liver (ie lupus hepatitis) versus overlap
autoimmune hepatitis with SLE versus hepatotoxicity (less likely as hydroxychloroquine category C and belimumab category E per Liver Tox) versus underlying viral hepatitis versus other metabolic and/or hereditary cause of liver disease. There was no
other concern for ischemia as patient was without hypotension or other potential concern for drug-induced liver injury. Viral Hepatitis panel was negative. Patient was noted to have elevated CMV IgM and elevated EBV IgM. HSV 1 and 2 antibodies were
negative. Infectious Disease specialist was consulted and noted patient's EBV VCA IgG+, IgM+, EA Ab +, EBNA negative, which were suggestive of recent primary EBV; infectious disease also mentioned that patient's CMV IgM+ was likely a false positive
(cross-reactivity with EBV) versus low level reactivation from acute medical condition, which is not significant. It was noted that there is no antiviral treatment for EBV and transaminitis associated with EBV should be self-limited. Patient's
hepatic transaminases did start showing improvement.
Patient had serology studies performed as follows: elevated total IgG levels (3182) and (+) SHRUTHI, (-) SLA, (-) ASMA (-) anti-LKM; (-) ceruloplasmin and (-) AMA ab, (-) Celiac serologies. Anti-dsDNA IgG Ab was noted to be slightly above the upper
limit of normal, and complements C3 and C4 were both mildly low.
Liver biopsy was performed by Interventional Radiology, on 04/28/24.
Lumbar puncture was performed, and neurology was also consulted. CSF meningitis panel was negative. Patient had a brain MRI which was unremarkable.
Inpatient guest service manager spoke to patient's vessel builder at least twice during patient's hospital stay. Hospitalist also spoke to patient's vessel builder, as well as [facility] on-call vessel builder, and after extensive discussion
with both rheumatologists it was determined that patient's steroids can be switched from intravenous dexamethasone to prednisone 40 mg daily. Patient's symptoms improved significantly and she was okay for discharge with close outpatient follow-up
with her vessel builder and also close follow-up with gastroenterology.
Discharge Plan
-
Patient Disposition: Home (Routine Discharge)
Discharge Diagnosis/Procedures: #Concern for acute lupus flare, presented as mental fog/fatigue/back and knee pain
#Transaminitis from possible lupus involvement of liver versus overlap Autoimmune Hepatitis with SLE versus hepatotoxicity (less likely as hydroxychloroquine category C and belimumab category E per Liver Tox) versus underlying viral hepatitis versus
other metabolic and/or hereditary cause of liver disease
#Leukocytosis Likely Secondary to Steroids
#Positive EBV - Recent Primary EBV infection
#Vitamin D Insufficiency
#Vaginal discharge - concern for Bacterial Vaginosis
#Subclinical hyperthyroidism
#Memory impairment -- improved/resolved as per patient
Condition: Good
Diet: As tolerated
Activity: As tolerated
Blood Work: CBC with diff., CMP (including LFTs) and INR within 1 to 2 weeks the latest. Check thyroid function tests.
Activity Restrictions/Additional Instructions:
As discussed, you will need to follow-up closely regarding your liver biopsy results. Follow-up with Dr. Kashif Yanez who is a dedicated Seismograph Operator at [facility] (Dr. Gennaro Monique inpatient guest service manager at [facility] reached out
to Dr. Kashif Yanez for an appointment sooner rather than later) but should also follow-up with Dr. Gennaro Monique regarding your liver biopsy results.
Avoid all hepatotoxic medications and avoid alcohol.
Follow-up with your outpatient vessel builder this week.
Recheck Vitamin D outpatient with your primary care provider, and stop Vitamin D if appropriate.
Referrals:
Padmaja Vazquez CRNP [Specified Professional Personl] - in one to two weeks (Hospital Follow-up)
Martell Quinteros MD [Family Provider] - in less than 1 week
Gennaro Monique DO [Active] - in one to two weeks (Hospital Follow-up)
Additional Discharge Medication Instructions: Vitamin D3, Metronidazole, HealthyLax and Prednisone are new medications.
Discuss with your outpatient vessel builder regarding your Prednisone regimen going forward.
Benylsta is on hold -- discuss with your outpatient vessel builder regarding if and when to resume this medication.
Discussed with your outpatient physicians regarding if and when to resume Adderall.
Prescriptions:
New
prednisone 20 mg Tablet
40 mg PO DAILY Qty: 14 0RF
metronidazole 500 mg Tablet
500 mg PO Q12H Qty: 11 0RF
polyethylene glycol 3350 [HealthyLax] 17 gram Powder In Packet
17 g PO DAILY Qty: 14 0RF
cholecalciferol (vitamin D3) 50 mcg (2,000 unit) Tablet
50 mcg PO DAILY Qty: 14 0RF
Continued
hydroxychloroquine [Plaquenil] 200 mg Tablet
200 mg PO .EVERY OTHER DAY
Held
prednisone 10 mg Tablet
10 mg PO DAILY
Hold Instructions: Resume on 05/18/24. Discuss with your outpatient vessel builder if and when to resume this medication at the 10 mg daily dose.
Rx Instructions:
patient's standard dose is 3ng daily. patient unsure of taper dosing
dextroamphetamine-amphetamine [Adderall] 15 mg Tablet
15 mg PO BID
Hold Instructions: Resume on 05/14/24. Check with your outpatient primary care physician regarding if and when to resume this medication.
Benlysta 200 mg/mL Auto-Injector
200 mg SC QWEEK
Hold Instructions: Resume on 06/15/24. Check with your outpatient vessel builder physician regarding if and when to resume this medication.
Discharge Orders:
Discharge Patient (As Directed); Ordered 05/03/24
Ordered By: Kevin Blanco
Discharge Date and Time
Discharge Date/Time: 05/03/24 13:27
Print Language: TAJIK
--- NOTE | 2024-05-03 14:54 | CM ---
Home no needs.
Plan; Home no needs.
[2024-05-03 23:38] LABS: Albumin Index 7.1 ratio (0.0-9.0); Albumin, CSF 22 mg/dL (0-35); Albumin, Serum 3119 mg/dL (3500-5200); CSF IgG Synthesis Rate 14.6 mg/d (<=8.0); CSF IgG/Albumin Ratio 0.57 ratio (0.09-0.25); CSF Oligoclonal Bands Positive (Negative); CSF Oligoclonal Bands Number 12 Bands (0-1); IgG 2472 mg/dL (768-1632); IgG, CSF 12.5 mg/dL (0.0-6.0)
== END 2024-05-03 13:27 | disposition home or self-care (01) | DRG 546 ==
LOC: 4 WEST ACU 12:15
PROVIDERS: Internal Medicine; Radiology Diagnostic Radiology; Student in an Organized Health Care Education/Training Program; ADMITTING PHYSICIAN Family Medicine; ATTENDING PHYSICIAN Hospitalist; CONSULT PHYSICIAN Internal Medicine Gastroenterology; CONSULT PHYSICIAN Psychiatry & Neurology Neurology; EMERGENCY PHYSICIAN Emergency Medicine; FAMILY PHYSICIAN Family Medicine; OTHER PHYSICIAN Internal Medicine Infectious Disease
PROC: 0FB03ZX Excision of Liver, Percutaneous Approach, Diagnostic (ICD-10-PCS; 2024-04-28)
DX: M32.19 Other organ or system involvement in systemic lupus erythematosus (principal); D84.821 Immunodeficiency due to drugs; K73.8 Other chronic hepatitis, not elsewhere classified; E03.8 Other specified hypothyroidism; N76.0 Acute vaginitis; T38.0X5A Adverse effect of glucocorticoids and synthetic analogues, initial encounter; E55.9 Vitamin D deficiency, unspecified; F90.9 Attention-deficit hyperactivity disorder, unspecified type; G44.209 Tension-type headache, unspecified, not intractable; B27.00 Gammaherpesviral mononucleosis without complication; R41.3 Other amnesia; M54.50 Low back pain, unspecified; R79.89 Other specified abnormal findings of blood chemistry; Z79.899 Other long term (current) drug therapy; Z87.39 Personal history of other diseases of the musculoskeletal system and connective tissue; Z88.2 Allergy status to sulfonamides
CPT/HCPCS: 88307; 47000; 62328; 70553; 76700; 76942; 80053; 80306; 80307; 81003; 81015; 82040; 82042; 82103; 82140; 82164; 82248; 82306; 82390; 82550; 82607; 82728; 82746; 82784; 82945; 83516; 83540; 83550; 83690; 83735; 83873; 83916; 84157; 84439; 84443; 84484; 84703; 85025; 85610; 85652; 86015; 86038; 86039; 86140; 86160; 86225; 86231; 86256; 86376; 86381; 86592; 86644; 86645; 86663; 86664; 86665; 86694; 86695; 86696; 86704; 86706; 86708; 86787; 86803; 87015; 87070; 87086; 87102; 87116; 87205; 87327; 87340; 87476; 87483; 87497; 87529; 88313; 88341; 88342; 88365; 89051; 93005; 95816; 96360; 99152; 99153; 99285; A9575

== ENCOUNTER → 2024-06-21 08:09 | Outpatient (REF) | payer OTHER, SELFPAY | LOC: HWRAD 08:09 | PROVIDERS: ATTENDING PHYSICIAN Student in an Organized Health Care Education/Training Program; FAMILY PHYSICIAN Family Medicine | DX: D84.9 Immunodeficiency, unspecified (principal) | CPT/HCPCS: 77080 ==